=== PATIENT | female | born 1990 | race Caucasian/White ===

== ENCOUNTER → 2016-04-24 | Outpatient (CLI) | payer OTHER ==
[~2016-04-24] MED LIST: ACET50TA PO; ANUS2.5C2 TOP; DOCU10ELUD PO; IBUP80TA PO; ISOVUE-370 76% 100ML VIAL (Q9967) As Ordered ONE; LANSOIN TOP; MOM30SS PO; PRENTAB74 PO
--- NOTE | 2016-04-24 13:53 | REP ---
CT study of the right foot with IV contrast: History: Mass medial side of the right foot. Suspected to be hemangioma years ago, not definitively proven. Plain film did not show evidence of calcifications. Comparison MRI study is from February 15, 2006. Technique: Helical scanning is acquired and 2 mm high resolution axial images are generated. Coronal and sagittal multiplanar reformation images are generated and reviewed. CT findings: Bones and joints of the right foot, midfoot, and hindfoot are unremarkable. Ankle joint is normally aligned. No evidence of tarsal coalition or other malformation. The subtalar articulation is unremarkable. No bony destructive lesion or erosive change is seen. In the area where the prior MRI study showed a mass, medially in the forefoot, there is a heterogeneous soft tissue fullness containing tubular and peripherally calcified structures consistent with a vascular lesion. This mass is essentially unchanged from the 2006 prior study measuring 2.8 cm in craniocaudal span by approximately 1.4 cm medial to lateral by 2.3 cm dorsal to volar. No definite contrast enhancement is seen. No other soft tissue mass. Impression: Heterogeneous small mass in the medial aspect of the forefoot containing some peripherally calcified tubular structures consistent with vascular channels. Vascular malformation suspected such as hemangioma. It is felt to be unchanged in size when compared to prior MRI study from 2005. Signed by Iván Hernandez MD 04/24/2016 03:22 P
== END ==
LOC: M RAD 12:18
PROVIDERS: ATTEND Family Medicine
DX: R22.41 Localized swelling, mass and lump, right lower limb (principal)
CPT/HCPCS: 73701; Q9967

== ENCOUNTER 2016-05-06 11:02 | Emergency (ER) | payer OTHER ==
[~2016-05-06] VITALS: Ht 170.2 cm; Wt 88.5 kg
[~2016-05-06 11:02] MED LIST changes: -ISOVUE-370 76% 100ML VIAL (Q9967) As Ordered ONE
[2016-05-06] MEDS ORDERED: ZOLO100T PO (11:11)
[2016-05-06] MEDS ORDERED: STRA18CA PO (11:11)
[2016-05-06] MEDS ORDERED: ONDANSETRON 4 MG ORAL DISINTEGRATING TAB (S0181) PO ONE (11:45)
[2016-05-06] MEDS ORDERED: GI COCKTAIL 50ML BTL(HYOSCYAMINE/MAALOX/LIDOCAINE VISCOUS)(1:3:1) PO ONE (11:45)
[2016-05-06 12:10] VITALS: BP 129/85
[2016-05-06] MEDS ORDERED: ZOFR4TAB3 PO (12:12)
== END 2016-05-06 12:17 | disposition home or self-care (01) ==
LOC: M ED 11:26
DX: K21.0 Gastro-esophageal reflux disease with esophagitis (principal)

== ENCOUNTER 2017-01-27 14:15 | Emergency (ER) | payer OTHER ==
[~2017-01-27] VITALS: Ht 170.2 cm; Wt 90.9 kg
[~2017-01-27 14:15] MED LIST changes: +STRA18CA PO; +ZOFR4TAB3 PO; +ZOLO100T PO
[2017-01-27] MEDS ORDERED: METOCLOPRAMIDE INJ 10MG/2ML VIAL (J2765) IV ONE (15:45)
[2017-01-27 16:08] LABS: BASO % 0.4 % (0.0-1.0); EOS % 0.5 % (0.0-3.0); IMMATURE GRANULOCYTE % 0.4 % (0-0); LYMPH # 1.1 10^3/uL (1.5-6.5); LYMPH % 14.9 % (24.0-44.0); MEAN CORPUSCULAR HEMOGLOBIN 30.4 pg (27.0-33.0); MEAN CORPUSCULAR HGB CONC 33.8 g/dl (32.0-36.5); MONO # 0.4 10^3/uL (0.0-0.8); NEUTROPHILS # 5.8 10^3/uL (1.8-7.7); NEUTROPHILS % 78.8 % (36.0-66.0); PLATELET COUNT, AUTOMATED 260 10^3/uL (150-450); WHITE BLOOD COUNT 7.4 10^3/uL (4.0-10.0)
[2017-01-27] MEDS ORDERED: NS 1,000 ML IV ONE (16:30)
[2017-01-27 16:44] LABS: ALBUMIN 4.2 GM/DL (3.2-5.2); ALKALINE PHOSPHATASE 65 U/L (45-117); ALT/SGPT 24 U/L (12-78); ANION GAP 10 MEQ/L (8-16); AST/SGOT 10 U/L (7-37); BILIRUBIN,TOTAL 0.4 MG/DL (0.2-1.0); BLOOD UREA NITROGEN 13 MG/DL (7-18); CALCIUM LEVEL 9.3 MG/DL (8.5-10.1); CARBON DIOXIDE LEVEL 25 MEQ/L (21-32); CHLORIDE LEVEL 106 MEQ/L (98-107); CREATININE FOR GFR 0.74 MG/DL (0.55-1.02); GLOMERULAR FILTRATION RATE > 60.0 (>60); GLUCOSE, FASTING 87 MG/DL (70-105); HCG, SERUM QUANTITATIVE 31371 MIU/ML; POTASSIUM SERUM 3.7 MEQ/L (3.5-5.1); SODIUM LEVEL 141 MEQ/L (136-145); TOTAL PROTEIN 8.4 GM/DL (6.4-8.2)
[2017-01-27] MEDS ORDERED: DRAM50TA7 PO (17:22)
[2017-01-27 17:31] VITALS: BP 134/70
== END 2017-01-27 17:42 | disposition home or self-care (01) ==
LOC: M ED 14:15
DX: O21.9 Vomiting of pregnancy, unspecified (principal); Z3A.08 8 weeks gestation of pregnancy
CPT/HCPCS: 80053; 84702; 85025; 96374; 99284; J2765

== ENCOUNTER 2017-02-04 12:14 | Emergency (ER) | payer OTHER ==
[~2017-02-04] VITALS: Ht 170.2 cm; Wt 93.6 kg
[2017-02-04 12:14] VITALS: BP 135/80
[~2017-02-04 12:14] MED LIST changes: +DRAM50TA7 PO
[2017-02-04] MEDS ORDERED: [UNRECOGNIZED DRUG - CODE] (12:20)
[2017-02-04] MEDS ORDERED: NS 1,000 ML IV ONE (13:00)
[2017-02-04] MEDS ORDERED: METOCLOPRAMIDE INJ 10MG/2ML VIAL (J2765) IV ONE (13:00)
[2017-02-04 13:28] LABS: MUCUS, URINE RFX LARGE (NEGATIVE); SPECIFIC GRAVITY UR AUTO RFX 1.034 (1.002-1.035); SQUAM EPITHELIAL CELL UR AURFX 26 /HPF (0-6)
[2017-02-04 13:44] LABS: ANION GAP 9 MEQ/L (8-16); BLOOD UREA NITROGEN 16 MG/DL (7-18); CARBON DIOXIDE LEVEL 27 MEQ/L (21-32); CHLORIDE LEVEL 103 MEQ/L (98-107); CREATININE FOR GFR 0.72 MG/DL (0.55-1.02); GLOMERULAR FILTRATION RATE > 60.0 (>60); GLUCOSE, FASTING 92 MG/DL (70-105); POTASSIUM SERUM 4.2 MEQ/L (3.5-5.1); SODIUM LEVEL 139 MEQ/L (136-145)
[2017-02-04] MEDS ORDERED: DICL10TA PO (15:18)
== END 2017-02-04 15:22 | disposition home or self-care (01) ==
LOC: M ED 12:14
DX: O21.0 Mild hyperemesis gravidarum (principal); Z3A.08 8 weeks gestation of pregnancy; Z79.899 Other long term (current) drug therapy
CPT/HCPCS: 80048; 81001; 96361; 96374; 99284; J2765

== ENCOUNTER 2017-03-13 15:38 | Inpatient (IN) | payer OTHER ==
[2017-03-13] MEDS ORDERED: ONDANSETRON 4MG/2ML VIAL (J2405) IV (16:00)
[2017-03-13] MEDS: PROMETHAZINE INJ 25 MG/ML VIAL (J2550) IV ×2 (16:38→20:52)
[2017-03-13 16:59] LABS: HEMATOCRIT 39.2 % (36.0-47.0); HEMOGLOBIN 13.4 g/dl (12.0-16.0); MEAN CORPUSCULAR HEMOGLOBIN 30.8 pg (27.0-33.0); MEAN CORPUSCULAR HGB CONC 34.2 g/dl (32.0-36.5); MEAN CORPUSCULAR VOLUME 90.1 fl (80.0-96.0); PLATELET COUNT, AUTOMATED 232 10^3/uL (150-450); RED BLOOD COUNT 4.35 10^6/uL (4.00-5.40); RED CELL DISTRIBUTION WIDTH 13.2 % (11.5-14.5); WHITE BLOOD COUNT 8.5 10^3/uL (4.0-10.0)
[2017-03-13] MEDS: ONDANSETRON 4MG/2ML VIAL (J2405) IV ×2 (17:08→21:31)
[2017-03-13] MEDS: LR 1,000 ML IV ×2 (18:10→21:18)
[2017-03-13] MEDS: ACETAMINOPHEN 325 MG TAB PO (18:10)
[2017-03-13] MEDS: LR 500 ML IV (18:11)
[2017-03-13 19:10] LABS: ALBUMIN 4.1 GM/DL (3.2-5.2); ALBUMIN/GLOBULIN RATIO 1.11 (1.00-1.93); ALKALINE PHOSPHATASE 54 U/L (45-117); ALT/SGPT 33 U/L (12-78); ANION GAP 11 MEQ/L (8-16); AST/SGOT 13 U/L (7-37); BILIRUBIN,TOTAL 0.3 MG/DL (0.2-1.0); BLOOD UREA NITROGEN 11 MG/DL (7-18); CALCIUM LEVEL 9.6 MG/DL (8.5-10.1); CARBON DIOXIDE LEVEL 24 MEQ/L (21-32); CHLORIDE LEVEL 106 MEQ/L (98-107); CREATININE FOR GFR 0.64 MG/DL (0.55-1.02); GLOMERULAR FILTRATION RATE > 60.0 (>60); GLUCOSE, FASTING 86 MG/DL (70-100); POTASSIUM SERUM 3.5 MEQ/L (3.5-5.1); SODIUM LEVEL 141 MEQ/L (136-145); TOTAL PROTEIN 7.8 GM/DL (6.4-8.2)
[2017-03-13 21:37] LABS: APPEARANCE, URINE HAZY (CLEAR); BACTERIA, URINE AUTO 1+ (NEGATIVE); BILIRUBIN, URINE AUTO NEGATIVE (NEGATIVE); BLOOD, URINE BLOOD NEGATIVE (NEGATIVE); COLOR, URINE YELLOW (YELLOW); GLUCOSE, URINE (UA) AUTO NEGATIVE (NEGATIVE); KETONE, URINE AUTO 2+ mg/dL (NEGATIVE); LEUKOCYTE ESTERASE, URINE AUTO NEGATIVE (NEGATIVE); MUCUS, URINE SMALL (NEGATIVE); NITRITE, URINE AUTO NEGATIVE (NEGATIVE); PROTEIN, URINE AUTO 1+ mg/dL (NEGATIVE); RBC, URINE AUTO 1 /HPF (0-3); SPECIFIC GRAVITY URINE AUTO 1.029 (1.002-1.035); SQUAMOUS EPITHELIAL CELL UR AU 1 /HPF (0-6); UROBILINOGEN, URINE AUTO 0.2 mg/dL (0.0-2.0); WBC, URINE AUTO 1 /HPF (0-3)
[2017-03-13 21:48] LABS: AMPHETAMINES URINE REFLEX NEGATIVE (NEGATIVE); BARBITURATES URINE REFLEX NEGATIVE (NEGATIVE); BENZODIAZEPINES URINE REFLEX NEGATIVE (NEGATIVE); CANNABINOIDS URINE REFLEX NEGATIVE (NEGATIVE); COCAINE METABOLITE URINE REFLE NEGATIVE (NEGATIVE); METHADONE URINE REFLEX NEGATIVE (NEGATIVE); OPIATES URINE REFLEX NEGATIVE (NEGATIVE); PHENCYCLIDINE URINE REFLEX NEGATIVE (NEGATIVE)
[2017-03-14] MEDS: ONDANSETRON 4MG/2ML VIAL (J2405) IV ×3 (01:25→08:43)
[2017-03-14] MEDS: LR 1,000 ML IV (05:05)
[2017-03-14] MEDS: PROMETHAZINE INJ 25 MG/ML VIAL (J2550) IV (08:43)
[2017-03-14] MEDS ORDERED: LR 1,000 ML IV (09:00)
[2017-03-14] MEDS: ONDANSETRON 4 MG TAB (S0181) PO ×2 (12:16→17:50)
[2017-03-14] MEDS: ACETAMINOPHEN 500 MG TAB PO ×2 (13:02→20:25)
[2017-03-14] MEDS: PROMETHAZINE 25 MG TAB PO ×2 (16:00→20:25)
[2017-03-15] MEDS: ONDANSETRON 4 MG TAB (S0181) PO ×2 (00:13→06:30)
[2017-03-15] MEDS: PROMETHAZINE 25 MG TAB PO (08:28)
[2017-03-15] MEDS: LR 1,000 ML IV (09:00)
== END 2017-03-15 12:00 | disposition home or self-care (01) | DRG 781 ==
LOC: M OBS 15:38
DX: O21.9 Vomiting of pregnancy, unspecified (principal); Z3A.13 13 weeks gestation of pregnancy; Z79.899 Other long term (current) drug therapy; F41.9 Anxiety disorder, unspecified; O99.342 Other mental disorders complicating pregnancy, second trimester

== ENCOUNTER 2017-08-20 20:19 | Outpatient (CLI) | payer OTHER ==
[2017-08-20 21:22] LABS: HEMATOCRIT 32.7 % (36.0-47.0); HEMOGLOBIN 10.7 g/dl (12.0-15.5); MEAN CORPUSCULAR HEMOGLOBIN 29.9 pg (27.0-33.0); MEAN CORPUSCULAR HGB CONC 32.7 g/dl (32.0-36.5); MEAN CORPUSCULAR VOLUME 91.3 fl (80.0-96.0); PLATELET COUNT, AUTOMATED 149 10^3/uL (150-450); RED BLOOD COUNT 3.58 10^6/uL (4.00-5.40); RED CELL DISTRIBUTION WIDTH 15.2 % (11.5-14.5); WHITE BLOOD COUNT 7.3 10^3/uL (4.0-10.0)
== END 2017-08-20 22:35 | disposition home or self-care (01) ==
LOC: M LDO 20:19
DX: O99.89 Other specified diseases and conditions complicating pregnancy, childbirth and the puerperium (principal); Z3A.37 37 weeks gestation of pregnancy; W19.XXXA Unspecified fall, initial encounter; E86.0 Dehydration; O99.013 Anemia complicating pregnancy, third trimester; O99.343 Other mental disorders complicating pregnancy, third trimester
CPT/HCPCS: 59025

== ENCOUNTER 2017-08-29 02:14 | Inpatient (IN) | payer OTHER ==
[2017-08-29] MEDS: CALCIUM CARBONATE 500 MG CHEW U/D PO (08:12)
[2017-08-29 08:25] LABS: HEMATOCRIT 32.9 % (36.0-47.0); MEAN CORPUSCULAR HEMOGLOBIN 30.3 pg (27.0-33.0); MEAN CORPUSCULAR HGB CONC 33.4 g/dl (32.0-36.5); MEAN CORPUSCULAR VOLUME 90.6 fl (80.0-96.0); PLATELET COUNT, AUTOMATED 174 10^3/uL (150-450); RED BLOOD COUNT 3.63 10^6/uL (4.00-5.40); WHITE BLOOD COUNT 9.6 10^3/uL (4.0-10.0)
[2017-08-29] MEDS: LR 1,000 ML IV (09:36)
[2017-08-29] MEDS: OXYTOCIN DRIP 30 UNITS in APPROPRIATE DILUENT 1 EA IV ×2 (09:37→17:57)
[2017-08-29] MEDS ORDERED: FENTANYL 2MCG/ML ROPIVACAINE 0.2% IN 0.9% NACL 200ML IVBAG As Ordered (11:51)
[2017-08-29] MEDS ORDERED: LACTATED RINGER'S 1000 ML IV (13:45)
[2017-08-29] MEDS ORDERED: FENTANYL/ROPIVACAINE/NACL BAG 200 ML EPIDURAL (13:45)
[2017-08-29] MEDS ORDERED: ONDANSETRON 4MG/2ML VIAL (J2405) IV ×2 (13:45→18:00)
[2017-08-29] MEDS ORDERED: ePHEDrine SULFATE 25 MG/5 ML(5MG/ML) SYRINGE IV (13:45)
[2017-08-29] MEDS ORDERED: diphenhydrAMINE INJ 50MG/ML VIAL (J1200) IV (13:45)
[2017-08-29] MEDS ORDERED: EPIDURAL COMMENT XX (13:45)
[2017-08-29] MEDS ORDERED: REFRIGERATOR IV KEYS XX (13:45)
[2017-08-29] MEDS ORDERED: NALOXONE INJ 0.4 MG/1 ML VIAL (J2310) IV (13:45)
[2017-08-29] MEDS ORDERED: EPIDURAL/PCA KEYS XX (13:45)
[2017-08-29] MEDS ORDERED: PROMETHAZINE 25 MG TAB PO (18:00)
[2017-08-29] MEDS ORDERED: DIBUCAINE 1% OINTMENT 30GM TOP (18:00)
[2017-08-29] MEDS ORDERED: RHOGAM 300 MCG (1500 IU) INJ (J2790) IM (18:00)
[2017-08-29] MEDS ORDERED: MEASLES,MUMPS,RUBELLA VACCINE INJ (MMR-II) (90707) SC (18:00)
[2017-08-29] MEDS ORDERED: METHYLERGONOVINE MALEATE 0.2 MG/ML VIAL (J2210) IM (18:00)
[2017-08-29] MEDS: IBUPROFEN 800 MG TAB PO (18:39)
[2017-08-29] MEDS: DOCUSATE SODIUM 100 MG CAP PO (22:11)
[2017-08-30] MEDS: ACETAMINOPHEN 500 MG TAB PO (02:00)
[2017-08-30] MEDS: DOCUSATE SODIUM 100 MG CAP PO ×2 (08:37→20:25)
[2017-08-30] MEDS: PRENATAL VITAMINS CHEWABLE TABLET PO (08:37)
[2017-08-30] MEDS: IBUPROFEN 800 MG TAB PO ×2 (08:37→20:30)
[2017-08-31] MEDS: PRENATAL VITAMINS CHEWABLE TABLET PO (08:03)
[2017-08-31] MEDS: DOCUSATE SODIUM 100 MG CAP PO (08:03)
[2017-08-31] MEDS: IBUPROFEN 800 MG TAB PO (08:03)
== END 2017-08-31 15:40 | disposition home or self-care (01) | DRG 775 ==
LOC: M LDO 02:14 → M LDI 04:54 → M OBS 18:10
PROVIDERS: Obstetrics & Gynecology
PROC: 10E0XZZ Delivery of Products of Conception, External Approach (ICD-10-PCS; principal; 2017-08-29)
DX: O36.0130 Maternal care for anti-D [Rh] antibodies, third trimester, not applicable or unspecified (principal); Z37.0 Single live birth; Z3A.38 38 weeks gestation of pregnancy

== ENCOUNTER 2018-04-13 19:59 | Emergency (ER) | payer OTHER ==
[~2018-04-13] VITALS: Ht 170.2 cm; Wt 90.9 kg
[~2018-04-13 19:59] MED LIST changes: +ACET500T15 PO; +B6 N1TAB PO; +COLA100C5 PO; +DICL10TA PO; +FERR325T3 PO; +IBUP-1022 PO; +PHEN1SUP6 PO; +PRENTAB9 PO; +TYLE325T5 PO; +UNIS25TA3 PO; +VITA500C24 PO; +ZOFR4TAB14 PO; +ZOFR4TAB16 PO; -ZOFR4TAB3 PO; +[UNRECOGNIZED DRUG - CODE]
[2018-04-13] MEDS ORDERED: ADDE15CA3 PO (20:02)
[2018-04-13] MEDS: ONDANSETRON 4 MG ORAL DISINTEGRATING TAB (Q0162 PER 1MG) PO ONE (20:24)
[2018-04-13] MEDS: DICYCLOMINE 10 MG CAP PO ONE (20:24)
[2018-04-13 20:58] VITALS: BP 118/70
[2018-04-13] MEDS ORDERED: ONDA4TAB6 PO (20:59)
[2018-04-13] MEDS ORDERED: DICY10CA13 PO (20:59)
== END 2018-04-13 21:17 | disposition home or self-care (01) ==
LOC: M ED 19:59
DX: R10.2 Pelvic and perineal pain (principal); R11.2 Nausea with vomiting, unspecified; F90.9 Attention-deficit hyperactivity disorder, unspecified type; Z79.899 Other long term (current) drug therapy
CPT/HCPCS: 81001; 81025; 99284; Q0162

== ENCOUNTER → 2019-05-28 | Outpatient (REF) | payer BC ==
[~2019-05-28] MED LIST changes: -ACET50TA PO; +ADDE15CA3 PO; -B6 N1TAB PO; +DICY10CA13 PO; -DOCU10ELUD PO; +DOCU5LIQ PO; +MAPA500T17 PO; +ONDA4TAB6 PO; +VITA100T14 PO
[2019-05-28 13:35] LABS: HEMATOCRIT 40.4 % (36.0-47.0); HEMOGLOBIN 13.3 g/dl (12.0-15.5); MEAN CORPUSCULAR HEMOGLOBIN 31.3 pg (27.0-33.0); MEAN CORPUSCULAR HGB CONC 32.9 g/dl (32.0-36.5); MEAN CORPUSCULAR VOLUME 95.1 fl (80.0-96.0); PLATELET COUNT, AUTOMATED 292 10^3/uL (150-450); RED BLOOD COUNT 4.25 10^6/uL (4.00-5.40); WHITE BLOOD COUNT 4.2 10^3/uL (4.0-10.0)
[2019-05-28 13:51] LABS: ALBUMIN 3.9 GM/DL (3.2-5.2); ALT/SGPT 61 U/L (12-78); BILIRUBIN,TOTAL 0.2 MG/DL (0.2-1.0); BLOOD UREA NITROGEN 15 MG/DL (7-18); CALCIUM LEVEL 9.4 MG/DL (8.5-10.1); CARBON DIOXIDE LEVEL 30 MEQ/L (21-32); CHLORIDE LEVEL 106 MEQ/L (98-107); CREATININE FOR GFR 0.82 MG/DL (0.55-1.30); GLOMERULAR FILTRATION RATE > 60.0 (>60); GLUCOSE, FASTING 82 MG/DL (70-100); POTASSIUM SERUM 4.3 MEQ/L (3.5-5.1); SODIUM LEVEL 141 MEQ/L (136-145); TOTAL PROTEIN 7.4 GM/DL (6.4-8.2)
== END ==
LOC: M LAB REF 13:24
PROVIDERS: ATTEND Internal Medicine
DX: Z79.899 Other long term (current) drug therapy (principal); F41.9 Anxiety disorder, unspecified

== ENCOUNTER → 2019-08-18 | Outpatient (CLI) | payer BC | LOC: M LAB 14:50 | PROVIDERS: ATTEND Internal Medicine Gastroenterology | DX: R19.7 Diarrhea, unspecified (principal) ==

== ENCOUNTER → 2019-08-27 | Outpatient (CLI) | payer BC ==
[~2019-08-27] MED LIST changes: +BUPR150T5; +DROS1TAB2; +E-Z-PAQUE 96% w/w SUSP 176GM BTL As Ordered ONE; +METH36TA5
--- NOTE | 2019-08-30 23:44 | REP ---
Examination Requested: SBFT Reason For Exam: Diarrhea Small Bowel Follow Through The procedure was performed by WILLAM Iglesias, under the direct supervision of Dr. Reno. The images were reviewed with Dr. Reno. The ranch supervisor film shows no organomegaly or pathological masses. The intestinal gas pattern appears normal. The barium was administered and the barium column was followed through the small bowel to the level of the terminal ileum. Small bowel transit time was approximately 40 minutes. During fluoroscopy gentle palpation shows all loops are freely mobile and pliable. There are no fixed or angulated loops. The small bowel mucosal pattern is normal in course and caliber. There is no transition to suggest a partial small-bowel obstruction. Spot filming of the terminal ileum shows it to be unremarkable. Impression: 1. Unremarkable small bowel follow-through 0.7 minutes of fluoroscopy time was utilized for this procedure. Some fluoroscopic images are performed with last image hold technology. These images require no additional radiation. Reviewed by WILLAM Hogue 08/27/2019 01:21 P Electronically Signed by Jamil Reno MD 08/30/2019 11:36 P
== END ==
LOC: M RAD 09:08
PROVIDERS: ATTEND Internal Medicine Gastroenterology
DX: R19.7 Diarrhea, unspecified (principal)

== ENCOUNTER → 2019-09-29 | Outpatient (CLI) | payer BC ==
[~2019-09-29] MED LIST changes: -E-Z-PAQUE 96% w/w SUSP 176GM BTL As Ordered ONE
--- NOTE | 2019-11-11 07:34 | REP ---
HIDA SCAN WITH GALLBLADDER EJECTION FRACTION: FINDINGS: Following the intravenous administration of 6.6 mCi technetium-99m Brovana, multiple images of the right upper quadrant are performed every 5 minutes for a period of one hour. The gallbladder is visualized at 10 minutes post injection. By one hour, there is no evidence of biliary to bowel transit, which may indicate a hypertonic sphincter of Oddi. At the one hour priscila, 8 ounces of Ensure Enlive is ingested and further imaging performed for one hour. There is relatively prompt biliary to bowel transit following ingestion of the Ensure. Gallbladder activity is measured. The gallbladder ejection fraction is calculated to be 30%, which is below normal value of 35% or greater. 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 Mildly decreased gallbladder ejection fraction at 30%. MTDD
== END ==
LOC: M RAD 08:00
PROVIDERS: ATTEND Internal Medicine Gastroenterology
DX: K82.8 Other specified diseases of gallbladder (principal); R11.0 Nausea

== ENCOUNTER → 2019-11-12 | Outpatient (REF) | payer BC ==
[2019-11-12 13:28] LABS: BASO # 0.1 10^3/uL (0.0-0.2); BASO % 1.1 % (0.0-1.0); EOS # 0.1 10^3/uL (0.0-0.5); EOS % 1.3 % (0.0-3.0); HEMATOCRIT 41.3 % (36.0-47.0); HEMOGLOBIN 13.7 g/dl (12.0-15.5); LYMPH # 1.5 10^3/uL (1.5-5.0); LYMPH % 32.9 % (24.0-44.0); MEAN CORPUSCULAR HEMOGLOBIN 32.2 pg (27.0-33.0); MEAN CORPUSCULAR HGB CONC 33.2 g/dl (32.0-36.5); MEAN CORPUSCULAR VOLUME 96.9 fl (80.0-96.0); MONO # 0.2 10^3/uL (0.0-0.8); MONO % 4.8 % (0.0-5.0); NEUTROPHILS # 2.7 10^3/uL (1.5-8.5); NEUTROPHILS % 59.7 % (36.0-66.0); PLATELET COUNT, AUTOMATED 271 10^3/uL (150-450); RED BLOOD COUNT 4.26 10^6/uL (4.00-5.40); WHITE BLOOD COUNT 4.6 10^3/uL (4.0-10.0)
[2019-11-12 14:05] LABS: ALT/SGPT 29 U/L (12-78); BILIRUBIN,TOTAL 0.2 MG/DL (0.2-1.0); BLOOD UREA NITROGEN 16 MG/DL (7-18); CALCIUM LEVEL 9.3 MG/DL (8.5-10.1); CARBON DIOXIDE LEVEL 28 MEQ/L (21-32); CHLORIDE LEVEL 107 MEQ/L (98-107); CHOLESTEROL LEVEL 176 MG/DL (<200); CHOLESTEROL RISK RATIO 2.983 (<5); FERRITIN 25 NG/ML (8-252); GLOMERULAR FILTRATION RATE > 60.0 (>60); GLUCOSE, FASTING 89 MG/DL (70-100); HDL CHOLESTEROL 59 MG/DL (>40); HEMOGLOBIN A1c 5.1 %; IRON (FE) 70 UG/DL (50-170); LDL CHOLESTEROL 98 MG/DL (<100); NON-HDL-C 117 MG/DL; PERCENT SATURATION 16.7 % (13.2-45.0); POTASSIUM SERUM 4.1 MEQ/L (3.5-5.1); RHEUMATOID FACTOR QUANT < 10.0 IU/ML (<15.0); SODIUM LEVEL 138 MEQ/L (136-145); TOTAL IRON BINDING CAPACITY 420 UG/DL (250-450); TOTAL PROTEIN 7.2 GM/DL (6.4-8.2); TRIGLYCERIDES LEVEL 96 MG/DL (<150)
[2019-11-12 14:08] LABS: TOTAL 25(OH) VITAMIN D 31.3 NG/ML (30.0-100.0)
[2019-11-12 14:09] LABS: TOTAL T3 128.5 NG/DL (60.0-181.0)
[2019-11-16 10:30] LABS: THYROID PEROXIDASE ANTIBODY < 28.0 U/ML (<60.0)
== END ==
LOC: M LAB REF 13:06
PROVIDERS: ATTEND Physician Assistant Medical
DX: R53.83 Other fatigue (principal); F41.9 Anxiety disorder, unspecified; K58.9 Irritable bowel syndrome, unspecified

== ENCOUNTER → 2019-11-15 | Outpatient (CLI) | payer BC | LOC: M LABSMTC 09:42 | PROVIDERS: ATTEND Anesthesiology | DX: Z01.812 Encounter for preprocedural laboratory examination (principal); Z20.828 Contact with and (suspected) exposure to other viral communicable diseases | CPT/HCPCS: C9803; U0003 ==

== ENCOUNTER 2019-11-20 11:12 | Day surgery (SDC) | payer BC ==
[~2019-11-20] VITALS: Ht 170.2 cm; Wt 75.7 kg
[~2019-11-20 11:12] MED LIST changes: +NS 1,000 ML IV ONE
[2019-11-20] MEDS ORDERED: propofoL 200 MG/20 ML VIAL As Ordered ONE ×3 (11:51→13:18)
[2019-11-20] MEDS ORDERED: LIDOCAINE 2% 100MG/5ML SDV (FOR ANES.) As Ordered ONE ×2 (11:51→12:59)
--- NOTE | 2019-11-20 13:11 | ROOR ---
Patient Name: Mima Cifuentes Procedure Date: 11/20/2019 12:55 PM Date of : 1990 Age: 29 Room: [facility] Gender: Female Note Status: Finalized Procedure: Upper GI endoscopy Indications: Generalized abdominal pain, Nausea Providers: Scottie ALEJANDRO MD Referring MD: Ana DAMON MD Requesting Provider: Medicines: Monitored Anesthesia Care Complications: No immediate complications. Procedure: Pre-Anesthesia Assessment: - The heart rate, respiratory rate, oxygen saturations, blood pressure, adequacy of pulmonary ventilation, and response to care were monitored throughout the procedure. The Endoscope was introduced through the mouth, and advanced to the second part of duodenum. The upper GI endoscopy was accomplished without difficulty. The patient tolerated the procedure well. Findings: The esophagus was normal. The stomach was normal. The examined duodenum was normal. Biopsies for histology were taken with a cold forceps in the second portion of the duodenum and in the third portion of the duodenum for evaluation of celiac disease. Biopsies were taken with a cold forceps in the gastric antrum for Helicobacter pylori testing. Impression: - Normal esophagus. - Normal stomach. - Normal examined duodenum. - Biopsies were taken with a cold forceps for evaluation of celiac disease. - Biopsies were taken with a cold forceps for Helicobacter pylori testing. Recommendation: - Telephone endoscopist for pathology results in 2 weeks. - Please complete your lab work ordered--stool testing. (my office will mail you lab slip again if you do not have it) Scottie Alejandro MD Scottie ALEJANDRO MD 11/20/2019 1:10:42 PM Electronically signed by Scottie ALEJANDRO MD Number of Addenda: 0 Note Initiated On: 11/20/2019 12:55 PM Estimated Blood Loss: Estimated blood loss: none.
--- NOTE | 2019-11-20 13:29 | ROOR ---
Patient Name: Mima Cifuentes Procedure Date: 11/20/2019 12:56 PM Date of : 1990 Age: 29 Room: [facility] Gender: Female Note Status: Finalized Procedure: Colonoscopy Indications: Suspected irritable bowel syndrome, Change in bowel habits Providers: Scottie ALEJANDRO MD Referring MD: Ana DAMON MD Requesting Provider: Medicines: Monitored Anesthesia Care Complications: No immediate complications. Procedure: Pre-Anesthesia Assessment: - The heart rate, respiratory rate, oxygen saturations, blood pressure, adequacy of pulmonary ventilation, and response to care were monitored throughout the procedure. The Colonoscope was introduced through the anus and advanced to 10 cm into the ileum. The colonoscopy was performed without difficulty. The patient tolerated the procedure well. The quality of the bowel preparation was good. Findings: The perianal and digital rectal examinations were normal. The colon (entire examined portion) appeared normal. The terminal ileum appeared normal. Biopsies for histology were taken with a cold forceps from the entire colon for evaluation of microscopic colitis. Impression: - Very small internal Hemorrhoids. - The entire colon is normal. - The examined portion of the ileum was normal. - Biopsies were taken with a cold forceps from the entire colon for evaluation of microscopic colitis. Recommendation: - Telephone endoscopist for pathology results in 2 weeks. - Telephone endoscopist for lab results in 2 weeks. - Please complete stool testing - my office will mail you the lab slips again if you do not have them. Scottie Alejandro MD Scottie ALEJANDRO MD 11/20/2019 1:28:48 PM Electronically signed by Scottie ALEJANDRO MD Number of Addenda: 0 Note Initiated On: 11/20/2019 12:56 PM Estimated Blood Loss: Estimated blood loss: none.
[2019-11-20 13:45] VITALS: BP 114/53
== END 2019-11-20 14:13 | disposition home or self-care (01) ==
LOC: M OPP 11:12
PROVIDERS: ATTEND Internal Medicine Gastroenterology
DX: R19.4 Change in bowel habit (principal); R10.84 Generalized abdominal pain; R11.0 Nausea; D12.6 Benign neoplasm of colon, unspecified; K64.8 Other hemorrhoids; D13.2 Benign neoplasm of duodenum; F41.9 Anxiety disorder, unspecified; F32.9 Major depressive disorder, single episode, unspecified; F90.9 Attention-deficit hyperactivity disorder, unspecified type; Z79.899 Other long term (current) drug therapy; Z82.49 Family history of ischemic heart disease and other diseases of the circulatory system; Z83.3 Family history of diabetes mellitus; Z82.69 Family history of other diseases of the musculoskeletal system and connective tissue; Z80.1 Family history of malignant neoplasm of trachea, bronchus and lung

== ENCOUNTER → 2019-12-25 | Outpatient (REF) | payer BC ==
[~2019-12-25] MED LIST changes: -NS 1,000 ML IV ONE
[2019-12-25 14:31] LABS: AMYLASE 70 U/L (25-115); LIPASE 221 U/L (73-393)
== END ==
LOC: M LAB REF 13:07
PROVIDERS: ATTEND Nurse Practitioner Family
DX: R10.10 Upper abdominal pain, unspecified (principal)

== ENCOUNTER → 2020-01-06 | Outpatient (REF) | payer BC | LOC: M LAB REF 14:40 | PROVIDERS: ATTEND Internal Medicine Gastroenterology | DX: R19.7 Diarrhea, unspecified (principal) ==

== ENCOUNTER → 2020-03-25 | Outpatient (REF) | payer BC ==
[2020-03-25 13:18] LABS: BASO # 0.1 10^3/uL (0.0-0.2); BASO % 0.9 % (0.0-1.0); EOS # 0.1 10^3/uL (0.0-0.5); EOS % 1.1 % (0.0-3.0); HEMOGLOBIN 14.2 g/dl (12.0-15.5); LYMPH # 1.5 10^3/uL (1.5-5.0); LYMPH % 26.7 % (24.0-44.0); MEAN CORPUSCULAR HEMOGLOBIN 31.3 pg (27.0-33.0); MEAN CORPUSCULAR HGB CONC 32.3 g/dl (32.0-36.5); MEAN CORPUSCULAR VOLUME 97.1 fl (80.0-96.0); MONO # 0.4 10^3/uL (0.0-0.8); MONO % 6.5 % (0.0-5.0); NEUTROPHILS # 3.6 10^3/uL (1.5-8.5); NEUTROPHILS % 64.4 % (36.0-66.0); PLATELET COUNT, AUTOMATED 278 10^3/uL (150-450); RED BLOOD COUNT 4.53 10^6/uL (4.00-5.40); WHITE BLOOD COUNT 5.6 10^3/uL (4.0-10.0)
[2020-03-25 13:25] LABS: APPEARANCE, URINE CLOUDY (CLEAR); BACTERIA, URINE AUTO NEGATIVE (NEGATIVE); BILIRUBIN, URINE AUTO NEGATIVE (NEGATIVE); BLOOD, URINE BLOOD 1+ (NEGATIVE); CALCIUM OXALATE CRYSTALS SMALL; COLOR, URINE YELLOW (YELLOW); GLUCOSE, URINE (UA) AUTO NEGATIVE (NEGATIVE); KETONE, URINE AUTO NEGATIVE (NEGATIVE); LEUKOCYTE ESTERASE, URINE AUTO 3+ (NEGATIVE); MUCUS, URINE SMALL (NEGATIVE); NITRITE, URINE AUTO NEGATIVE (NEGATIVE); PROTEIN, URINE AUTO 1+ mg/dL (NEGATIVE); RBC, URINE AUTO 2 /HPF (0-3); SPECIFIC GRAVITY URINE AUTO 1.024 (1.002-1.035); SQUAMOUS EPITHELIAL CELL UR AU 13 /HPF (0-6); UROBILINOGEN, URINE AUTO 0.2 mg/dL (0.0-2.0); WBC, URINE AUTO 13 /HPF (0-3)
[2020-03-25 13:30] LABS: INR 0.99; PROTHROMBIN TIME 13.3 SECONDS (12.5-14.3)
[2020-03-25 13:52] LABS: ALBUMIN 4.1 GM/DL (3.2-5.2); ALT/SGPT 26 U/L (12-78); BILIRUBIN,TOTAL 0.2 MG/DL (0.2-1.0); BLOOD UREA NITROGEN 15 MG/DL (7-18); CALCIUM LEVEL 9.8 MG/DL (8.5-10.1); CARBON DIOXIDE LEVEL 30 MEQ/L (21-32); CHLORIDE LEVEL 105 MEQ/L (98-107); CREATININE FOR GFR 1.13 MG/DL (0.55-1.30); GLOMERULAR FILTRATION RATE > 60.0 (>60); GLUCOSE, FASTING 102 MG/DL (70-100); LIPASE 251 U/L (73-393); POTASSIUM SERUM 4.2 MEQ/L (3.5-5.1); SODIUM LEVEL 141 MEQ/L (136-145); TOTAL PROTEIN 7.2 GM/DL (6.4-8.2)
[2020-03-25 13:59] LABS: TOTAL 25(OH) VITAMIN D 22.1 NG/ML (30.0-100.0)
== END ==
LOC: M LAB REF 12:53
PROVIDERS: ATTEND Physician Assistant Medical
DX: K80.70 Calculus of gallbladder and bile duct without cholecystitis without obstruction (principal)

== ENCOUNTER 2020-03-31 08:47 | Day surgery (SDC) | payer BC, OTHER ==
[~2020-03-31] VITALS: Ht 170.2 cm; Wt 75.9 kg
[~2020-03-31 08:47] MED LIST changes: +AMPICILLIN SOD/SULBACTAM SOD 3 GM in D5W MINI-BAG PLUS 100 ML IV ONE; +CelecoXIB (CeleBREX) 100 MG CAP PO ONE; +LIDOCAINE 1% MDV 20ML VIAL SQ PRN; +LR 1,000 ML IV ONE
--- OUTSIDE RECORDS SUMMARY | 2020-03-31 08:54 | CCD | Continuity of Care Document ---
Author Author Mima LOPES Organization Unknown Address [address] [place] [address] Phone [phone] Care Team Providers Care Cleaning Staff Supervisor Name Role Phone Ana Panchal MD AUTM [phone] [facility] [address] [facility] AUTM [phone] [facility] Gastroenterology AUTM [phone] Problems Active Problems Provider Date Anxiety state Ana Panchal MD Onset: 01/21/2019 Irritable bowel syndrome characterized by alternating bowel habit Ana Panchal MD Onset: 01/21/2019 Attention-deficit hyperactivity disorder, unspecified type Ana Panchal MD Onset: 01/21/2019 Recurrent major depression in partial remission Rodolfo Piper rn, KUHSHI Onset: 03/16/2020 Family problems Rodolfo White LCSW Onset: 03/16/2020 Social History Type Date Description Comments Sex Unknown Tobacco Use Start: Unknown Never Smoked Cigarettes Tobacco Use Start: Unknown Never Smoked Cigars Tobacco Use Start: Unknown Never Smoked A Pipe Tobacco Use Start: Unknown Never Used Smokeless Tobacco ETOH Use Denies alcohol use Tobacco Use Start: Unknown Patient has never smoked Recreational Drug Use Denies Drug Use Exercise Type/Frequency Does not exercise Guns in Home No Smoke Alarms Carbon Monoxide Detector: Yes Smoke Alarms Yes Allergies, Adverse Reactions, Alerts Active Allergies Reaction Severity Comments Date NKDA 01/21/2019 NKEA 01/21/2019 NKFA 01/21/2019 Medications Active Medications SIG Qnty Indications Ordering Provide r Date Kariva 0.15-0.02/0.01 mg (08/07) Ta blets 1 by mouth every day 28tabs Z30.011 Aiden Samuels M.D. 03/16 Adderall XR 25mg Caps ER 24HR 1 by mouth every day 30caps Iván Stauffer MD 11/04/2019 Bupropion Hydrochloride ER (SR) 150mg Tablets ER 12HR take one tablet by mouth twice daily 60tabs F32.89 Iván Stauffer MD 01/21/2019 Hyoscyamine Sulfate 0.125mg Tablet s 1 tablet three times daily as needed for abdominal pain 30tabs K58.2 Ana Panchal MD 01/21/2019 Vitamin D 1000Unit Tablets 1 by mouth every day Unknown Drospirenone-Ethinyl Estradiol 3-0.02mg Tablets Take 1 Tablet By Mouth Once Daily Unknown History Medications Concerta 36mg Tablets ER 1 by mouth every day 30tabs Iván Stauffer MD 10/07/2019 - 11/04/2019 Immunizations Description No Information Available Vital Signs Date Vital Result Comment 03/16/2020 9:37am BP Systolic 118 mmHg BP Diastolic 72 mmHg Heart Rate 70 /min Body Temperature 96.8 F Weight 166.12 lb Weight 75.354 kg Height 67 inches 5'7" BMI (Body Mass Index) 26.0 kg/m2 BSA (Body Surface Area) 1.87 m2 02/04/2020 9:53am BP Systolic 102 mmHg BP Diastolic 68 mmHg Heart Rate 107 /min Body Temperature 98.4 F Respiratory Rate 16 /min O2 % BldC Oximetry 98 % Weight 165.00 lb Weight 74.844 kg Height 67 inches 5'7" BMI (Body Mass Index) 25.8 kg/m2 BSA (Body Surface Area) 1.86 m2 Results Description No Information Available Procedures Date Code Description Status 03/16/2020 18282 Psychiatric Diagnostic Evaluatio n Completed 02/04/2020 31448 Admin Patient Focused Health Ris k Assessment Instrument Completed 02/04/2020 91556 Brief Emotional/Beha v Assessment W/ Scoring Doc Per Standard Inst Completed 10/07/2019 64777 Psychiatric Diag Eval W/Medical Service Completed Medical Devices Description No Information Available Encounters Description No Information Available Assessments Date Code Description Provider 03/25/2020 F90.9 Attention-deficit hyperactivity disorder, unspecified type Darlyn Philip RONNIE 03/25/2020 F33.41 Major depressive disorder, recur rent, in partial remission Darlyn Philip, [facility] 03/25/2020 Z63.0 Problems in relationship with sp ouse or partner Darlyn Tamera, [facility] 03/25/2020 F41.9 Anxiety disorder, unspecified Th audra Philip, [facility] 03/16/2020 F90.9 Attention-deficit hyperactivity disorder, unspecified type Rodolfo White, [facility] 03/16/2020 Z01.419 Encounter for gyneco logical examination (general) (routine) without abnormal findings Arlen Palomino, [facility] 03/16/2020 F33.41 Major depressive disorder, recur rent, in partial remission Rodolfo White, [facility] 03/16/2020 Z30.011 Encounter for initial prescripti on of contraceptive pills Arlen Palomino, [facility] 03/16/2020 Z63.0 Problems in relationship with sp ouse or partner Rodolfo White, [facility] 02/08/2020 F90.9 Attention-deficit hyperactivity disorder, unspecified type Ramesh Winslow PA-C 02/08/2020 F33.9 Major depressive disorder, recur rent, unspecified JANICE ThomasC 02/08/2020 F41.9 Anxiety disorder, unspecified Ca oleg Winslow PA-C 02/04/2020 Z00.00 Encounter for genera l adult medical examination without abnormal findings Ana Panchal MD 02/04/2020 R10.9 Unspecified abdominal pain Ana Panchal MD 02/04/2020 F90.9 Attention-deficit hyperactivity disorder, unspecified type Ana Panchal MD 02/04/2020 F33.9 Major depressive disorder, recur rent, unspecified Ana Panchal MD 02/04/2020 F41.9 Anxiety disorder, unspecified An fabián Panchal MD 12/01/2019 F90.9 Attention-deficit hyperactivity disorder, unspecified type Ramesh Winslow PA-C 12/01/2019 F33.9 Major depressive disorder, recur rent, unspecified Ramesh Winslow PA-C 11/23/2019 F90.9 Attention-deficit hyperactivity disorder, unspecified type Darlyn Philip, [facility] 11/23/2019 F33.9 Major depressive disorder, recur rent, unspecified Darlyn Philip, [facility] 11/04/2019 F90.9 Attention-deficit hyperactivity disorder, unspecified type Ramesh Winslow, ELEAZAR-C 11/04/2019 F33.9 Major depressive disorder, recur rent, unspecified Ramesh Nayla, PA-C 10/07/2019 F33.9 Major depressive disorder, recur rent, unspecified Ramesh Winslow, PA-C 10/07/2019 F90.9 Attention-deficit hyperactivity disorder, unspecified type Ramesh Nayla, PA-C 10/05/2019 F33.9 Major depressive disorder, recur rent, unspecified Darlyn Philip, [facility] 10/05/2019 F90.9 Attention-deficit hyperactivity disorder, unspecified type MILE Gong Plan of Treatment Future Appointment(s):* 04/18/2020 4:00 pm - MILE Gong at Behavioral [facility] * 04/07/2020 1:00 pm - MILE Gong at Behavioral Health * 05/10/2020 10:20 am - Ramesh Winslow PA-C at [facility] * 08/04/2020 9:20 am - Ana Panchal MD at [facility] Functional Status Functional Condition Comment Date Status Glasses Active Mental Status Description No Information Available Referrals Description No Information Available
--- OUTSIDE RECORDS SUMMARY | 2020-03-31 08:55 | CCD | Continuity of Care Document ---
Author Author Mima WINSLOW PA-C Organization Unknown Address [facility] Behavioral Health [address] [place] [address] Phone [phone] Care Team Providers Care Plugman Name Role Phone Ana Panchal MD AUTM [phone] [facility] AUTM [phone] [facility] Gastroenterology AUTM [phone] Problems Active Problems Provider Date Depressive disorder Ana Panchal MD Onset: 01/21/2019 Anxiety state Ana Panchal MD Onset: 01/21/2019 Irritable bowel syndrome characterized by alternating bowel habit Ana Panchal MD Onset: 01/21/2019 Attention-deficit hyperactivity disorder, unspecified type Ana Panchal MD Onset: 01/21/2019 Social History Type Date Description Comments Sex [...] SIG Qnty Indications Ordering Provide r Date Adderall XR 25mg Caps ER 24HR 1 [...] Available Vital Signs Date Vital Result Comment 02/04/2020 9:53am BP Systolic 102 mmHg BP Diastolic 68 mmHg Heart Rate 107 /min Body Temperature 98.4 F Respiratory Rate 16 /min O2 % BldC Oximetry 98 % Weight 165.00 lb Weight 74.844 kg Height 67 inches 5'7" BMI (Body Mass Index) 25.8 kg/m2 BSA (Body Surface Area) 1.86 m2 09/09/2019 8:08am BP Systolic Sitting 119 mmHg BP Diastolic Sitting 74 mmHg Heart Rate 97 /min Body Temperature 98.2 F Oral Respiratory Rate 16 /min O2 % BldC Oximetry 100 % Weight 171.25 lb Weight 77.679 kg Height 67 inches 5'7" BMI (Body Mass Index) 26.8 kg/m2 BSA (Body Surface Area) 1.89 m2 Results Test Acquired Date Facility Test Result H/L Range Note [facility] Toxassure Select 13 09/09/2019 Tonya chaudhry Summary Report (Summary) FINAL 1, 2 PDF . 1 {DIAGNOSIS: F33.9~{MEDICATI ONS/DECLARED: ADDERALL, BUPROPION~{PRESCRIPTION INFO:~{PRESCRIPTION 2 TOXASSURE SELECT 13 (MW) Test Result Flag Units Drug Present Amphetamine 349 ng/mg creat Amphetamine is available as a schedule II prescription drug. Test Result Flag Units Ref Range Creatinine 138 mg/dL >=20 Declared Medications: Medication list was not provided. For clinical consultation, please call . Procedures Date Code Description Status 02/04/2020 96804 Admin Patient Focused Health Ris k Assessment Instrument Completed 02/04/2020 77331 Brief Emotional/Beha v Assessment W/ Scoring Doc Per Standard Inst Completed 10/07/2019 38394 Psychiatric Diag Eval W/Medical Service Completed 08/12/2019 29553 Psychiatric Diagnostic Evaluatio n Completed Medical Devices Description No Information Available Encounters Type Date Location Provider Dx Diagnosis Office Visit 02/08/2020 10:20a Behavioral Health Ramesh Winslow PA-C F90.9 Attention-deficit hyperactivity disorder, unspecified type F33.9 Major depressive disorder, r ecurrent, unspecified F41.9 Anxiety disorder, unspecifie d Office Visit 02/04/2020 9:40a [facility] Ana Panchal MD Z00.00 Encntr for general adult medical exam w/o abnormal findings R10.9 Unspecified abdominal pain F90.9 Attention-deficit hyperactiv ity disorder, unspecified type F33.9 Major depressive disorder, r ecurrent, unspecified F41.9 Anxiety disorder, unspecifie d Assessments Date Code Description Provider 02/08/2020 F90.9 Attention-deficit hyperactivity disorder, unspecified type Ramesh Winslow, PA-C 02/08/2020 F33.9 Major depressive disorder, recur rent, unspecified ELEAZAR Thomas-C 02/08/2020 F41.9 Anxiety disorder, unspecified Ca leb ELEAZAR Winslow-C 02/04/2020 Z00.00 Encounter for genera l adult medical examination without abnormal findings Ana Panchal MD 02/04/2020 R10.9 Unspecified abdominal pain Ana Panchal MD 02/04/2020 F90.9 Attention-deficit hyperactivity disorder, unspecified type Ana Panchal MD 02/04/2020 F33.9 Major depressive disorder, recur rent, unspecified Ana Panchal MD 02/04/2020 F41.9 Anxiety disorder, unspecified An fabián Panchal MD 12/01/2019 F90.9 Attention-deficit hyperactivity disorder, unspecified type Ramesh Winslow, JANICEC 12/01/2019 F33.9 Major depressive disorder, recur rent, unspecified ELEAZAR Thomas-C 11/23/2019 F90.9 Attention-deficit hyperactivity disorder, unspecified type Darlyn Philip, [facility] 11/23/2019 F33.9 Major depressive disorder, recur rent, unspecified Darlyn Philip, [facility] 11/04/2019 F90.9 Attention-deficit hyperactivity disorder, unspecified type Ramesh Winslow, PA-C 11/04/2019 F33.9 Major depressive disorder, recur rent, unspecified Ramesh Winslow, PA-C 10/07/2019 F33.9 Major depressive disorder, recur rent, unspecified Ramesh Winslow, PA-C 10/07/2019 F90.9 Attention-deficit hyperactivity disorder, unspecified type Ramesh Winslow PA-C 10/05/2019 F33.9 Major depressive disorder, recur rent, unspecified Darlyn Tamera, [facility] 10/05/2019 F90.9 Attention-deficit hyperactivity disorder, unspecified type Darlyn Tamera, [facility] 09/09/2019 F33.9 Major depressive disorder, recur rent, unspecified Carmelita Sharma, RN 09/09/2019 F90.9 Attention-deficit hyperactivity disorder, unspecified type Carmelita Sharma, RN 09/01/2019 F33.9 Major depressive disorder, recur rent, unspecified Darlyn Tamera, [facility] 09/01/2019 F90.9 Attention-deficit hyperactivity disorder, unspecified type Darlyn Tamera, [facility] 08/12/2019 F33.9 Major depressive disorder, recur rent, unspecified Ila Valencia, [facility] 08/12/2019 F90.9 Attention-deficit hyperactivity disorder, unspecified type Ila Valencia, [facility] Plan of Treatment Future Appointment(s):* 05/10/2020 10:20 am - Ramesh Winslow PA-C at Behavioral Health * 02/15/2020 4:15 pm - Arlen Palomino NP at [facility] * 08/04/2020 9:20 am - Ana Panchal MD at [facility] Functional Status Functional Condition Comment Date Status Glasses Active Mental Status Description No Information Available Referrals Description No Information Available
--- OUTSIDE RECORDS SUMMARY | 2020-03-31 08:55 | CCD ---
Continuity of Care Document (CCD) Created on: 02/04/2020 Mima Cifuentes External Reference #: [id number] : 1990 Sex: Female Author Author Mima PANCHAL MD Organization Unknown Address [address] [place] [id number] Phone [phone] Care Team Providers Care Senior Wind Turbine Technician Name Role Phone Ana Panchal MD AUTM [phone] [facility] [address] [facility] AUTM [phone] [facility] Gastroenterology AUTM [phone] Problems Active Problems Provider Date Depressive disorder [...] . Procedures Date Code Description Status 02/04/2020 11177 Admin Patient Focused Health Ris k Assessment Instrument Completed 02/04/2020 02301 Brief Emotional/Beha v Assessment W/ Scoring Doc Per Standard Inst Completed 10/07/2019 12414 Psychiatric Diag Eval W/Medical Service Completed 08/12/2019 57131 Psychiatric Diagnostic Evaluatio n Completed Medical Devices Description No Information Available Encounters Description No Information Available Assessments Date Code Description Provider 12/01/2019 F90.9 Attention-deficit hyperactivity disorder, unspecified type Ramesh Winslow PA-C 12/01/2019 F33.9 Major depressive disorder, recur rent, unspecified JANICE ThomasC 11/23/2019 F90.9 Attention-deficit hyperactivity disorder, unspecified type Darlyn Tamera, [facility] 11/23/2019 F33.9 Major depressive disorder, recur rent, unspecified Darlyn Tamera, [facility] 11/04/2019 F90.9 Attention-deficit hyperactivity disorder, unspecified type Ramesh Winslow, PA-C 11/04/2019 F33.9 Major depressive disorder, recur rent, unspecified Ramesh Wisnlow, PA-C 10/07/2019 F33.9 Major depressive disorder, recur rent, unspecified Ramesh Winslow, PA-C 10/07/2019 F90.9 Attention-deficit hyperactivity disorder, unspecified type Ramesh Nayla, PA-C 10/05/2019 F33.9 Major depressive disorder, recur rent, unspecified Darlyn Tamera, [facility] 10/05/2019 F90.9 Attention-deficit hyperactivity disorder, unspecified type Darlyn Tamera, [facility] 09/09/2019 F33.9 Major depressive disorder, recur rent, unspecified Carmelita Sharma, RN 09/09/2019 F90.9 Attention-deficit hyperactivity disorder, unspecified type Carmelita Sharma, RN 09/01/2019 F33.9 Major depressive disorder, recur rent, unspecified Darlyn Tamera, [facility] 09/01/2019 F90.9 Attention-deficit hyperactivity disorder, unspecified type Darlyn Tamera, [facility] 08/12/2019 F33.9 Major depressive disorder, recur rent, unspecified Ila Valencia, [facility] 08/12/2019 F90.9 Attention-deficit hyperactivity disorder, unspecified type Ila Valencia, [facility] Plan of Treatment Future Appointment(s):* 08/04/2020 9:20 am - Ana Panchal MD at Family Practice * 02/08/2020 10:20 am - Ramesh Winslow PA-C at [facility] Functional Status Functional Condition Comment Date Status Glasses Active Mental Status Description No Information Available Referrals Description No Information Available
--- OUTSIDE RECORDS SUMMARY | 2020-03-31 08:55 | CCD | Continuity of Care Document ---
Author Author Mima PHILIP [facility] Organization Unknown Address [facility] Behavioral Health [address] [place] [address] Phone [phone] Care Team Providers Care Dealmaker Name Role Phone Ana Panchal MD AUTM [phone] [facility] AUTM [phone] [facility] Gastroenterology AUTM [phone] Problems Active Problems Provider Date Anxiety state Ana Panchal MD Onset: 01/21/2019 Irritable bowel syndrome characterized by alternating bowel habit Ana Panchal MD Onset: 01/21/2019 Attention-deficit hyperactivity disorder, unspecified type Ana Panchal MD Onset: 01/21/2019 Recurrent major depression in partial remission Rodolfo Piper rn, KHUSHI Onset: 03/16/2020 Family problems Rodolfo White LCSW [...] BSA (Body Surface Area) 1.86 m2 Results Test Acquired Date Facility Test Result H/L Range Note Laboratory test finding 03/16/2020 [facility] Pap Smear Thin Prep <pending> Procedures Date Code Description Status 03/16/2020 67366 Psychiatric Diagnostic Evaluatio n Completed 02/04/2020 65693 Admin Patient Focused Health Ris k Assessment Instrument Completed 02/04/2020 37966 Brief Emotional/Beha v Assessment W/ Scoring Doc Per Standard Inst Completed 10/07/2019 03040 Psychiatric Diag Eval W/Medical Service Completed Medical Devices Description No Information Available Encounters Description No Information Available Assessments Date Code Description Provider 03/25/2020 F90.9 Attention-deficit hyperactivity disorder, unspecified type Darlyn Philip, [facility] 03/25/2020 F33.41 Major depressive disorder, recur rent, in partial remission Darlyn Philip, [facility] 03/25/2020 Z63.0 Problems in relationship with sp ouse or partner Darlyn Philip, [facility] 03/25/2020 F41.9 Anxiety disorder, unspecified Th audra Philip, [facility] 03/16/2020 F90.9 Attention-deficit hyperactivity disorder, unspecified type Rodolfo Christopher, [facility] 03/16/2020 Z01.419 Encounter for gyneco logical examination (general) (routine) without abnormal findings Arlen Palomino, [employer] 03/16/2020 F33.41 Major depressive disorder, recur rent, in partial remission Rodolfo White, [facility] 03/16/2020 Z30.011 Encounter for initial prescripti on of contraceptive pills Arlen Palomino, GILBERT 03/16/2020 Z63.0 Problems in relationship with sp ouse or partner Rodolfo White, [facility] 02/08/2020 F90.9 Attention-deficit hyperactivity disorder, unspecified type Ramesh Winslow PA-C 02/08/2020 F33.9 Major depressive disorder, recur rent, unspecified Ramesh Winslow PA-C 02/08/2020 F41.9 Anxiety disorder, unspecified Ca oleg [...] Attention-deficit hyperactivity disorder, unspecified type Darlyn Philip, [facility] 11/23/2019 F33.9 Major depressive disorder, recur rent, unspecified Darlyn Philip, [facility] 11/04/2019 F90.9 Attention-deficit hyperactivity disorder, unspecified type Ramesh Winslow, [facility]-C 11/04/2019 F33.9 Major depressive disorder, recur rent, unspecified Ramesh Winslow, JANICEC 10/07/2019 F33.9 Major depressive disorder, recur rent, unspecified Ramesh Winslow, ELEAZAR-C 10/07/2019 F90.9 Attention-deficit hyperactivity disorder, unspecified type Ramesh Winslow, CHANDAN 10/05/2019 F33.9 Major depressive disorder, recur rent, unspecified Darlynneol Philip, [facility] 10/05/2019 F90.9 Attention-deficit hyperactivity disorder, unspecified type [facility]LE Gong Plan of Treatment Future Appointment(s):* 04/18/2020 4:00 pm - [facility]LE Gong at Behavioral Health * 04/07/2020 1:00 pm - [facility] at Behavioral Health * 05/10/2020 10:20 am - Ramesh Winslow PA-C at Behavioral Health * 08/04/2020 9:20 am - Ana Panchal MD at [facility] Functional Status Functional Condition Comment Date Status Glasses Active Mental Status Description No Information Available Referrals Description No Information Available
--- OUTSIDE RECORDS SUMMARY | 2020-03-31 08:55 | CCD | Continuity of Care Document ---
Author Author Mima GUIDO MD Organization Unknown Address [address] [address] Phone [phone] Care Team Providers Care Sales And In Home Delivery Specialist Name Role Phone Ana Panchal M.D. AUTM [phone] AUTM Unavailable [facility] Surgery Practice - Surgery AUTM Scottie Marin MD AUTM [phone] Problems Description No Active Problems Social History Type Date Description Comments Sex Unknown ETOH Use Denies alcohol use Recreational Drug Use Denies Drug Use Tobacco Use Start: Unknown Denies Smoking Allergies, Adverse Reactions, Alerts Description No Known Drug Allergies Medications Active Medications SIG Qnty Indications Ordering Provide r Date Ferrous Sulfate 325(65Fe) mg Table ts 1 po bid 60tabs Vani Murdock CNM 08/20/2012 Adderall XR 25mg Caps ER 24HR 1 by mouth every day Unknown Wellbutrin SR 150mg Tablets ER 12H R 1 by mouth twice a day 30tabs Unknown Loryna 3-0.02mg Tablets Take 1 Tablet By Mouth Once Daily Unknown Vitamin C 500mg Tablets every day Unknown Immunizations Description No Information Available Vital Signs Date Vital Result Comment 02/23/2020 10:07am BP Systolic 115 mmHg BP Diastolic 77 mmHg Height 67 inches 5'7" Weight 161.50 lb BMI (Body Mass Index) 25.3 kg/m2 [place] Body Weight 135 lb Weight 73.256 kg BSA (Body Surface Area) 1.85 m2 01/05/2020 8:44am BP Systolic 114 mmHg BP Diastolic 77 mmHg Height 67 inches 5'7" Weight 167.00 lb BMI (Body Mass Index) 26.2 kg/m2 [place] Body Weight 135 lb Weight 75.751 kg BSA (Body Surface Area) 1.87 m2 Results Test Acquired Date Facility Test Result H/L Range Note Fat Fecal Qualitative 01/06/2020 [facility] Main Lab [address] [place] [address] [id number] [phone] Fats Neutral Normal Normal . 1 Fats Total Normal Normal . 2 Laboratory test finding 01/06/2020 [facility] Main Lab [address] [place] [address] [phone] Pancreatic Elastase Stool >500 Normal >200 3 Calprotectin Stool <16 ug/g Normal 0-120 4 Laboratory test finding 11/20/2019 [facility] [address] [place] [address] [id number] [phone] Pathology Request For Service (SEE NOTE) 5 1 Normal (<60 Droplets/HPF) 2 Normal (<100 Droplets/HPF) 3 Result Units: ug Elast./g Severe Pancreatic Insufficiency: <100 Moderate Pancreatic Insufficiency: 100 - 200 Normal: >200 4 Concentration Interpreta tion Follow-Up <16 - 50 ug/g Normal None >50 -120 ug/g Borderline Re-evaluate in 4-6 weeks >120 ug/g Abnormal Repeat as clinically indicated Performed at: - [facility] [address] [id number] Corrosion Technician: Rosie Segura MD, Phone: [phone] Performed at: - [facility] [address] [id number] Corrosion Technician: Josselin Guzman MD, Phone: [phone] FINAL DIAGNOSIS A - Duodenum, biopsy: Small intestinal mucosa with preserved villous architecture. B - Gastric biopsy: Gastric mucosa, without significant acute or chronic inflammation. No H. pylori is noted. C - Random colon biopsy: Fragments of benign colonic mucosa, no evidence for microscopic colitis is noted. 11/23/2019 - 1229 CLINICAL DIAGNOSIS Nausea, vomiting, constipation 11/20/2019 - 1425 GROSS DIAGNOSIS A - Received in formalin labeled "duodenal biopsy" is a 0.6 x 0.3 x 0.3 cm. aggregate of mucosal fragments. All in one. B - Received in formalin labeled "gastric biopsy" is a 0.3 x 0.2 x 0.2 cm. portion of mucosa. All in one. C - Received in formalin labeled "random colon biopsy" is a 0.8 x 0.2 x 0.2 cm. aggregate of mucosal fragments. All in one. - 11/20/2019 - 1425 Signed Charlotte Yeh MD 11/23/2019 1317 Procedures Date Code Description Status 11/20/2019 05753 Colonoscopy Flexible Proximal To Splenic Flexure W/Biopsy Single/ Completed 11/20/2019 30294 Endoscopy Upper GI Biopsy Comple mika Medical Devices Description No Information Available Encounters Description No Information Available Assessments Date Code Description Provider 01/05/2020 R10.84 Generalized abdominal pain Abelardo Birmingham MD 01/05/2020 K82.8 Other specified diseases of gall bladder Tab Guido MD 11/20/2019 R19.4 Change in bowel habit Scottie camacho MD 11/20/2019 K64.8 Other hemorrhoids Scottie Marin MD 11/20/2019 R10.84 Generalized abdominal pain Scottie Marin MD 11/20/2019 R11.0 Nausea Scottie Marin MD Plan of Treatment No Information Available Functional Status Description No Information Available Mental Status Description No Information Available Referrals Refer to Reason for Referral Status Appt Date P Surgery Practice Closed [phone] Tab Guido MD BILIARY DYSKINESIA Closed [address] [address] [phone]
--- OUTSIDE RECORDS SUMMARY | 2020-03-31 08:55 | CCD | Continuity of Care Document ---
Author Author Mima [facility] Organization Unknown Address [facility] Behavioral Health [address] [place] [address] Phone [phone] Care Team Providers Care Education Rep Name Role Phone Ana Panchal MD AUTM [phone] [facility] AUTM [facility] Gastroenterology AUTM [phone] Problems Active Problems Provider Date Depressive disorder [...] H/L Range Note Laboratory test finding 03/16/2020 [facility] Pap Smear Thin Prep <pending> Procedures Date Code Description Status 02/04/2020 78023 Admin Patient Focused Health Ris k Assessment Instrument Completed 02/04/2020 15439 Brief Emotional/Beha v Assessment W/ Scoring Doc Per Standard Inst Completed 10/07/2019 21970 Psychiatric Diag Eval W/Medical Service Completed Medical Devices Description No Information Available Encounters Type Date Location Provider Dx Diagnosis Office Visit 03/16/2020 9:[address]a [facility] Arlen Palomino NP Z01.419 Encntr for pipe stress engineer exam (general) (routine) w/o abn findings Z30.011 Encounter for initial prescr iption of contraceptive pills Assessments Date Code Description Provider 03/16/2020 Z01.419 Encounter for gyneco logical examination (general) (routine) without abnormal findings Arlen Palomino NP 03/16/2020 Z30.011 Encounter for initial prescripti on of contraceptive pills Arlen Palomino NP 02/08/2020 F90.9 Attention-deficit hyperactivity disorder, unspecified type Ramesh Winslow, PA-C 02/08/2020 F33.9 Major depressive disorder, recur rent, unspecified Ramesh Nayla, PA-C 02/08/2020 F41.9 Anxiety disorder, unspecified Ca leb Nayla, PA-C 02/04/2020 Z00.00 Encounter for genera l [...] hyperactivity disorder, unspecified type Ramesh Winslow, PA-C 12/01/2019 F33.9 Major depressive disorder, recur rent, unspecified Ramesh Winslow, ELEAZAR-C 11/23/2019 F90.9 Attention-deficit hyperactivity disorder, unspecified type Darlyn Philip, [facility] 11/23/2019 F33.9 Major depressive disorder, recur rent, unspecified Darlyn Philip, [facility] 11/04/2019 F90.9 Attention-deficit hyperactivity disorder, unspecified type Ramesh Nayla, PA-C 11/04/2019 F33.9 Major depressive disorder, recur rent, unspecified Ramesh Nayla, PA-C 10/07/2019 F33.9 Major depressive disorder, recur rent, unspecified Ramesh Nayla, PA-C 10/07/2019 F90.9 Attention-deficit hyperactivity disorder, unspecified type Ramesh CHANDAN Winslow 10/05/2019 F33.9 Major depressive disorder, recur rent, unspecified MILE Gong 10/05/2019 F90.9 Attention-deficit hyperactivity disorder, unspecified type MILE Gong Plan of Treatment Future Appointment(s):* 05/10/2020 10:20 am - Ramesh Winslow PA-C at [facility] * 08/04/2020 9:20 am - Ana Panchal MD at [facility] Functional Status Functional Condition Comment Date Status Glasses Active Mental Status Description No Information Available Referrals Description No Information Available
--- OUTSIDE RECORDS SUMMARY | 2020-03-31 08:55 | CCD | Continuity of Care Document ---
Author Author Mima GUIDO MD Organization Unknown Address [address] [address] Phone [phone] Care Team Providers Care Gin Pole Operator Name Role Phone Ana Panchal M.D. AUTM [phone] AUTM Unavailable [facility] [place] Practice - Surgery AUTM Scottie Marin MD AUTM [phone] Problems Description No Active Problems Social History [...] Vitamin C 500mg Tablets every day Unknown History Medications Suprep Bowel Prep Kit 17.5-3.13-1.6GM/177ML Solution as directed - see dr akbar instructions 1Kit R19.7 Scottie Marin MD 08/18/2019 - 01/04/2020 Milk Of Magnesia 7.75% Suspension take 60 milliliters by mouth about 2-3 days before colonoscopy prep 360ml R19.7 Scottie Marin MD 08/18/2019 - 01/04/2020 Immunizations Description No Information Available Vital Signs Date Vital Result Comment 01/05/2020 8:44am BP Systolic 114 mmHg BP Diastolic 77 mmHg Height 67 inches 5'7" Weight 167.00 lb BMI (Body Mass Index) 26.2 kg/m2 [place] Body Weight 135 lb Weight 75.751 kg 08/18/2019 1:53pm BP Systolic 129 mmHg BP Diastolic 77 mmHg Height 67 inches 5'7" Weight 169.00 lb BMI (Body Mass Index) 26.5 kg/m2 [place] Body Weight 135 lb Weight 76.658 kg Results Test Acquired Date Facility Test Result H/L Range Note Laboratory test finding 11/20/2019 [facility] Main Lab [address] [place], [place] 1937158 [phone] Pathology Request For Service (SEE NOTE) 1 1 FINAL DIAGNOSIS A - Duodenum, biopsy: Small [...] 1317 Procedures Date Code Description Status 11/20/2019 97390 Colonoscopy Flexible Proximal To Splenic Flexure W/Biopsy Single/ Completed 11/20/2019 13080 Endoscopy Upper GI Biopsy Comple mika Medical Devices Description No Information Available Encounters Type Date Location Provider Dx Diagnosis Office Visit 08/18/2019 1:45p [facility] E[facility]GI [facility] Scottie Marin MD R19.7 Diarrhea, unspecified K59.00 Constipation, unspecified R11.0 Nausea R10.84 Generalized abdominal pain Assessments Date Code Description Provider 01/05/2020 R10.84 Generalized abdominal pain Abelardo Birmingham MD 01/05/2020 K82.8 Other specified diseases of gall bladder Tab Guido MD 11/20/2019 R19.4 Change in bowel habit Scottie camacho MD 11/20/2019 K64.8 Other hemorrhoids Scottie Marin MD 11/20/2019 R10.84 Generalized abdominal pain Scottie Marin MD 11/20/2019 R11.0 Nausea Scottie Marin MD 08/18/2019 R19.7 Diarrhea, unspecified Scottie camacho MD 08/18/2019 K59.00 Constipation, unspecified Scottie Marin MD 08/18/2019 R11.0 Nausea Scottie Marin MD 08/18/2019 R10.84 Generalized abdominal pain Scottie Marin MD Plan of Treatment 01/05/2020 - Tab Guido MD* R10.84 Generalized abdominal pain * K82.8 Other specified diseases of gallbladder* Comments:* 1.Discussed clinical findings as well as pathophysiology of gallstone formation and symptomatic gallstones.2. Discussed need for surgery as well as details and expected postoperative course after laparoscopic cholecystectomy.3. Discussed risks and benefits of cholecystectomy including but not limited to the risks of bl eeding, infection, bile leak and biliary tract injury as well as possibility of converting to an open procedure.4. Gave prescription for augmentin x 14 days for presumed mild cholecystitis.1. Discussed with patient results of HIDA scan and its clinical implications. 2. Discussed treatment options: laparoscopic cholecystectomy. Outcomes on patients with typical GB pain syndromes show pain relief in 9/10 patients with abnormal HIDA scan. Patients with atypical symptoms show relief in 5-6/10 patients with abnormal HIDA scan. Thus, patient aware that doing cholecystectomy may not totally alleviate symptoms. Patient understands and is willing to proceed.4. Discussed details of procedure, expected postoperative course, and risks and benefits including possibility of converting to open procedure. Functional Status Description No Information Available Mental Status Description No Information Available Referrals Refer to Reason for Referral Status Appt Date [facility] [place] Practice Closed [phone] Tab Guido MD BILIARY DYSKINESIA Closed [address] [place] [address] [phone]
--- OUTSIDE RECORDS SUMMARY | 2020-03-31 08:55 | CCD ---
Author Author [facility] Organization [facility] Address Unknown Phone Unavailable Care Team Providers Care Soda Fountain Manager Name Role Phone GRIS HAYNES Unavailable Unavailable [facility]_510, [id number] Unavailable Unavailable Alfred Stauffer MD Unavailable Unavailable Alfred Stauffer MD Unavailable Unavailable Alfred Stauffer MD Unavailable Unavailable Alfred Stauffer MD Unavailable Unavailable Alfred Stauffer MD Unavailable Unavailable Alfred Stauffer MD Unavailable Unavailable Alfred Stauffer MD Unavailable Unavailable Alfred Stauffer MD Unavailable Unavailable Alfred Stauffer MD Unavailable Unavailable Alfred Stauffer MD Unavailable Unavailable Alfred Stauffer MD Unavailable Unavailable Alfred Stauffer MD Unavailable Unavailable Alfred Stauffer MD Unavailable Unavailable Alfred Stauffer MD Unavailable Unavailable Alfred Stauffer MD Unavailable Unavailable Alfred Stauffer MD Unavailable Unavailable Alfred Stauffer MD Unavailable Unavailable Alfred Stauffer MD Unavailable Unavailable Alfred Stauffer MD Unavailable Unavailable Alfred Stauffer MD Unavailable Unavailable Alfred Stauffer MD Unavailable Unavailable Alfred Stauffer MD Unavailable Unavailable Alfred Stauffer MD Unavailable Unavailable Alfred Stauffer MD Unavailable Unavailable Alfred Stauffer MD Unavailable Unavailable Alfred Stauffer MD Unavailable Unavailable Alfred Stauffer MD Unavailable Unavailable Amari PAGE MD Unavailable Unavailable Amari PAGE MD Unavailable Unavailable Amari PAGE MD Unavailable Unavailable Amari PAGE MD Unavailable Unavailable Amari PAGE MD Unavailable Unavailable Amari PAGE MD Unavailable Unavailable Amari PAGE MD Unavailable Unavailable Amari PAGE MD Unavailable Unavailable Amari PAGE MD Unavailable Unavailable Amari PAGE MD Unavailable Unavailable Amari PAGE MD Unavailable Unavailable Amari PAGE MD Unavailable Unavailable Amari PAGE MD Unavailable Unavailable Amari PAGE MD Unavailable Unavailable Amari PAGE MD Unavailable Unavailable Amari PAGE MD Unavailable Unavailable Amari PAGE MD Unavailable Unavailable Amari PAGE MD Unavailable Unavailable Amari PAGE MD Unavailable Unavailable Amari PAGE MD Unavailable Unavailable Amari PAGE MD Unavailable Unavailable Amari PAGE MD Unavailable Unavailable Amari PAGE MD Unavailable Unavailable Amari PAGE MD Unavailable Unavailable Amari PAGE MD Unavailable Unavailable Amari PAGE MD Unavailable Unavailable Amari PAGE MD Unavailable Unavailable BROWNING, J ABHISHEK PA Unavailable Unavailable BROWNING, J ABHISHEK PA Unavailable Unavailable BROWNING, J ABHISHEK PA Unavailable Unavailable BROWNING, J ABHISHEK PA Unavailable Unavailable BROWNING, J ABHISHEK PA Unavailable Unavailable BROWNING, J ABHISHEK PA Unavailable Unavailable BROWNING, J ABHISHEK PA Unavailable Unavailable BROWNING, J ABHISHEK PA Unavailable Unavailable BROWNING, J ABHISHEK PA Unavailable Unavailable BROWNING, J ABHISHEK PA Unavailable Unavailable BROWNING, J ABHISHEK PA Unavailable Unavailable BROWNING, J ABHISHEK PA Unavailable Unavailable BROWNING, J ABHISHEK PA Unavailable Unavailable BROWNING, J ABHISHEK PA Unavailable Unavailable BROWNING, J ABHISHEK PA Unavailable Unavailable BROWNING, J ABHISHEK PA Unavailable Unavailable BROWNING, J ABHISHEK PA Unavailable Unavailable BROWNING, J ABHISHEK PA Unavailable Unavailable BROWNING, J ABHISHEK PA Unavailable Unavailable BROWNING, J ABHISHEK PA Unavailable Unavailable BROWNING, J ABHISHEK PA Unavailable Unavailable BROWNING, J ABHISHEK PA Unavailable Unavailable BROWNING, J ABHISHEK PA Unavailable Unavailable BROWNING, J ABHISHEK PA Unavailable Unavailable BROWNING, J ABHISHEK PA Unavailable Unavailable BROWNING, J ABHISHEK PA Unavailable Unavailable BROWNING, J ABHISHEK PA Unavailable Unavailable ABIGAIL, MALGORZATA Unavailable Unavailable BROWNING, J ABHISHEK PA Unavailable Unavailable BROWNING, J ABHISHEK PA Unavailable Unavailable BROWNING, J ABHISHEK PA Unavailable Unavailable BROWNING, J ABHISHEK PA Unavailable Unavailable RBOWNING, J ABHISHEK PA Unavailable Unavailable BROWNING, J ABHISHEK PA Unavailable Unavailable BROWNING, J ABHISHEK PA Unavailable Unavailable BROWNING, J ABHISHEK PA Unavailable Unavailable BROWNING, J ABHISHEK PA Unavailable Unavailable BROWNING, J ABHISHEK PA Unavailable Unavailable BROWNING, J ABHISHEK PA Unavailable Unavailable BROWNING, J ABHISHEK PA Unavailable Unavailable BROWNING, J ABHISHEK PA Unavailable Unavailable BROWNING, J ABHISHEK PA Unavailable Unavailable BROWNING, J ABHISHEK PA Unavailable Unavailable BROWNING, J ABHISHEK PA Unavailable Unavailable BROWNING, J ABHISHEK PA Unavailable Unavailable BROWNING, J ABHISHEK PA Unavailable Unavailable BROWNING, J ABHISHEK PA Unavailable Unavailable BROWNING, J ABHISHEK PA Unavailable Unavailable BROWNING, J ABHISHEK PA Unavailable Unavailable BROWNING, J ABHISHEK PA Unavailable Unavailable BROWNING, J ABHISHEK PA Unavailable Unavailable BROWNING, J ABHISHEK PA Unavailable Unavailable BROWNING, J ABHISHEK PA Unavailable Unavailable BROWNING, J ABHISHEK PA Unavailable Unavailable BROWNING, J ABHISHEK PA Unavailable Unavailable Wilmihaelae, Du Lockharti LEVER OPERATOR Unavailable Unavailable Kunnumpurath, F Ana MD Unavailable Unavailable Kunnumpurath, F Ana MD Unavailable Unavailable Kunnumpurath, F Ana MD Unavailable Unavailable Kunnumpurath, F Ana MD Unavailable Unavailable Kunnumpurath, F Ana MD Unavailable Unavailable Kunnumpurath, F Ana MD Unavailable Unavailable Kunnumpurath, F Ana MD Unavailable Unavailable Kunnumpurath, F Ana MD Unavailable Unavailable Kunnumpurath, F Ana MD Unavailable Unavailable Kunnumpurath, F Ana MD Unavailable Unavailable Kunnumpurath, F Ana MD Unavailable Unavailable Kunnumpurath, F Ana MD Unavailable Unavailable Kunnumpurath, F Ana MD Unavailable Unavailable Kunnumpurath, F Ana MD Unavailable Unavailable Kunnumpurath, F Ana MD Unavailable Unavailable Kunnumpurath, F Ana MD Unavailable Unavailable Kunnumpurath, F Ana MD Unavailable Unavailable Kunnumpurath, F Ana MD Unavailable Unavailable Kunnumpurath, F Ana MD Unavailable Unavailable Kunnumpurath, F Ana MD Unavailable Unavailable Kunnumpurath, F Ana MD Unavailable Unavailable Kunnumpurath, F Ana MD Unavailable Unavailable Kunnumpurath, F Ana MD Unavailable Unavailable Kunnumpurath, F Ana MD Unavailable Unavailable Kunnumpurath, F Ana MD Unavailable Unavailable Kunnumpurath, F Ana MD Unavailable Unavailable Kunnumpurath, F Ana MD Unavailable Unavailable Kunnumpurath, F Ana MD Unavailable Unavailable Kunnumpurath, F Ana MD Unavailable Unavailable Kunnumpurath, F Ana MD Unavailable Unavailable Kunnumpurath, F Ana MD Unavailable Unavailable Kunnumpurath, F Ana MD Unavailable Unavailable Kunnumpurath, F Ana MD Unavailable Unavailable Kunnumpurath, F Ana MD Unavailable Unavailable Kunnumpurath, F Ana MD Unavailable Unavailable Kunnumpurath, F Ana MD Unavailable Unavailable Kunnumpurath, F Ana MD Unavailable Unavailable Kunnumpurath, F Ana MD Unavailable Unavailable GUALLPA, NATALIA VARINDER DIRECTOR OF CARDIOLOGY SERVICE LINE Unavailable Unavailable GUALLPA, NATALIA VARINDER DIRECTOR OF CARDIOLOGY SERVICE LINE Unavailable Unavailable GUALLPA, NATALIA VARINDER DIRECTOR OF CARDIOLOGY SERVICE LINE Unavailable Unavailable GUALLPA, NATALIA VARINDER DIRECTOR OF CARDIOLOGY SERVICE LINE Unavailable Unavailable GUALLPA, NATALIA VARINDER DIRECTOR OF CARDIOLOGY SERVICE LINE Unavailable Unavailable GUALLPA, NATALIA VARINDER DIRECTOR OF CARDIOLOGY SERVICE LINE Unavailable Unavailable GUALLPA, NATALIA VARINDER DIRECTOR OF CARDIOLOGY SERVICE LINE Unavailable Unavailable GUALLPA, NATALIA VARINDER DIRECTOR OF CARDIOLOGY SERVICE LINE Unavailable Unavailable GUALLPA, NATALIA VARINDER DIRECTOR OF CARDIOLOGY SERVICE LINE Unavailable Unavailable GUALLPA, NATALIA VARINDER DIRECTOR OF CARDIOLOGY SERVICE LINE Unavailable Unavailable GUALLPA, NATALIA VARINDER DIRECTOR OF CARDIOLOGY SERVICE LINE Unavailable Unavailable GUALLPA, NATALIA VARINDER DIRECTOR OF CARDIOLOGY SERVICE LINE Unavailable Unavailable GUALLPA, NATALIA VARINDER DIRECTOR OF CARDIOLOGY SERVICE LINE Unavailable Unavailable GUALLPA, NATALIA VARINDER DIRECTOR OF CARDIOLOGY SERVICE LINE Unavailable Unavailable GUALLPA, NATALIA VARINDER DIRECTOR OF CARDIOLOGY SERVICE LINE Unavailable Unavailable GUALLPA, NATALIA VARINDER DIRECTOR OF CARDIOLOGY SERVICE LINE Unavailable Unavailable GUALLPA, NATALIA VARINDER DIRECTOR OF CARDIOLOGY SERVICE LINE Unavailable Unavailable GUALLPA, NATALIA VARINDER DIRECTOR OF CARDIOLOGY SERVICE LINE Unavailable Unavailable GUALLPA, NATALIA VARINDER DIRECTOR OF CARDIOLOGY SERVICE LINE Unavailable Unavailable GUALLPA, NATALIA VARINDER DIRECTOR OF CARDIOLOGY SERVICE LINE Unavailable Unavailable GUALLPA, NATALIA VARINDER DIRECTOR OF CARDIOLOGY SERVICE LINE Unavailable Unavailable GUALLPA, NATALIA VARINDER DIRECTOR OF CARDIOLOGY SERVICE LINE Unavailable Unavailable GUALLPA, NATALIA VARINDER DIRECTOR OF CARDIOLOGY SERVICE LINE Unavailable Unavailable REINDL, DEV AMBRIZ Unavailable Unavailable REINDL, DEV AMBRIZ Unavailable Unavailable REINDL, DEV AMBRIZ Unavailable Unavailable REINDL, DEV AMBRIZ Unavailable Unavailable REINDL, DEV AMBRIZ Unavailable Unavailable REINDL, DEV AMBRIZ Unavailable Unavailable REINDL, DEV AMBRIZ Unavailable Unavailable REINDL, DEV AMBRIZ Unavailable Unavailable REINDL, DEV AMBRIZ Unavailable Unavailable REINDL, DEV AMBRIZ Unavailable Unavailable REINDL, DEV AMBRIZ Unavailable Unavailable REINDL, DEV AMBRIZ Unavailable Unavailable REINDL, DEV AMBRIZ Unavailable Unavailable REINDL, DEV AMBRIZ Unavailable Unavailable REINDL, DEV AMBRIZ Unavailable Unavailable REINDL, DEV AMBRIZ Unavailable Unavailable REINDL, DEV AMBRIZ Unavailable Unavailable REINDL, DEV AMBRIZ Unavailable Unavailable REINDL, DEV AMBRIZ Unavailable Unavailable REINDL, DEV AMBRIZ Unavailable Unavailable REINDL, DEV AMBRIZ Unavailable Unavailable REINDL, DEV AMBRIZ Unavailable Unavailable REINDL, DEV AMBRIZ Unavailable Unavailable REINDL, DEV AMBRIZ Unavailable Unavailable REINDL, DEV AMBRIZ Unavailable Unavailable REINDL, DEV AMBRIZ Unavailable Unavailable REINDL, DEV AMBRIZ Unavailable Unavailable REINDL, DEV AMBRIZ Unavailable Unavailable REINDL, DEV AMBRIZ Unavailable Unavailable REINDL, DEV AMBRIZ Unavailable Unavailable REINDL, DEV AMBRIZ Unavailable Unavailable REINDL, DEV AMBRIZ Unavailable Unavailable REINDL, DEV AMBRIZ Unavailable Unavailable REINDL, DEV AMBRIZ Unavailable Unavailable REINDL, DEV AMBRIZ Unavailable Unavailable REINDL, DEV AMBRIZ Unavailable Unavailable REINDL, DEV AMBRIZ Unavailable Unavailable REINDL, DEV AMBRIZ Unavailable Unavailable REINDL, DEV AMBRIZ Unavailable Unavailable REINDL, DEV AMBRIZ Unavailable Unavailable REINDL, DEV AMBRIZ Unavailable Unavailable REINDL, DEV MD Unavailable Unavailable DEV ALEJANDRO MD Unavailable Unavailable DEV ALEJANDRO MD Unavailable Unavailable Kunnumpurath, F Ana MD Unavailable Unavailable Kunnumpurath, F Ana MD Unavailable Unavailable Kunnumpurath, F Ana MD Unavailable Unavailable Kunnumpurath, F Ana MD Unavailable Unavailable Kunnumpurath, F Ana MD Unavailable Unavailable Kunnumpurath, F Ana MD Unavailable Unavailable Kunnumpurath, F Ana MD Unavailable Unavailable Kunnumpurath, F Ana MD Unavailable Unavailable Kunnumpurath, F Ana MD Unavailable Unavailable Kunnumpurath, F Ana MD Unavailable Unavailable Kunnumpurath, F Ana MD Unavailable Unavailable Kunnumpurath, F Ana MD Unavailable Unavailable Kunnumpurath, F Ana MD Unavailable Unavailable Kunnumpurath, F Ana MD Unavailable Unavailable Kunnumpurath, F Ana MD Unavailable Unavailable Kunnumpurath, F Ana MD Unavailable Unavailable Kunnumpurath, F Ana MD Unavailable Unavailable Kunnumpurath, F Ana MD Unavailable Unavailable Kunnumpurath, F Ana MD Unavailable Unavailable Kunnumpurath, F Ana MD Unavailable Unavailable Kunnumpurath, F Ana MD Unavailable Unavailable Kunnumpurath, F Ana MD Unavailable Unavailable Kunnumpurath, F Ana MD Unavailable Unavailable Kunnumpurath, F Ana MD Unavailable Unavailable Kunnumpurath, F Ana MD Unavailable Unavailable Kunnumpurath, F Ana MD Unavailable Unavailable Kunnumpurath, F Ana MD Unavailable Unavailable Kunnumpurath, F Ana MD Unavailable Unavailable Kunnumpurath, F Ana MD Unavailable Unavailable Kunnumpurath, F Ana MD Unavailable Unavailable Kunnumpurath, F Ana MD Unavailable Unavailable Kunnumpurath, F Ana MD Unavailable Unavailable Kunnumpurath, F Ana MD Unavailable Unavailable Kunnumpurath, F Ana MD Unavailable Unavailable Kunnumpurath, F Ana MD Unavailable Unavailable Kunnumpurath, F Ana MD Unavailable Unavailable Kunnumpurath, F Ana MD Unavailable Unavailable Kunnumpurath, F Ana MD Unavailable Unavailable Re-disclosure Warning The records that you are about to access may contain information from federally-assisted alcohol or drug abuse programs. If such information is present, then the following federally mandated warning applies: This information has been disclosed to you from records protected by federal confidentiality rules (42 CFR part 2). The federal rules prohibit you from making any further disclosure of this information unless further disclosure is expressly permitted by the written consent of the person to whom it pertains or as otherwise permitted by 42 CFR part 2. A general authorization for the release of medical or other information is NOT sufficient for this purpose. The Federal rules restrict any use of the information to criminally investigate or prosecute any alcohol or drug abuse patient.The records that you are about to access may contain highly sensitive health information, the redisclosure of which is protected by Article 27-F of the [facility] Public Health law. If you continue you may have access to information: Regarding HIV / AIDS; Provided by facilities licensed or operated by the [facility] Office of Mental Health; or Provided by the [facility] Office for People With Developmental Disabilities. If such information is present, then the following [facility] mandated warning applies: This information has been disclosed to you from confidential records which are protected by state law. State law prohibits you from making any further disclosure of this information without the specific written consent of the person to whom it pertains, or as otherwise permitted by law. Any unauthorized further disclosure in violation of state law may result in a fine or prison sentence or both. A general authorization for the release of medical or other information is NOT sufficient authorization for further disc losure. Encounters Encounter Providers Location Date Indications Data Source(s ) Outpatient Attender: MALGORZATA HAYESConsultant: Ana ritter MD 03/25/2020 08:52:00 AM [facility] - 03/25/2020 08:52:00 AM [facility] Outpatient Attender: GRIS HAYNESConsultant: Ana molina MD 03/16/2020 11:00:00 AM [facility] - 03/16/2020 11:00:00 AM [facility] Outpatient Attender: VARINDER GUALLPA NPConsultant: Ana molina MD 03/16/2020 09:35:00 AM [facility] - 03/16/2020 09:35:00 AM [facility] Outpatient Attender: VARINDER GUALLPA NP Family Practice 03/16/2020 08 :30:00 AM EST [facility] Outpatient Attender: ABHISHEK BROWNING PAConsultant: Ana whitlock MD 02/08/2020 09:57:00 AM EST - 02/08/2020 09:57:00 AM EST [facility] System Outpatient Attender: ABHISHEK BUSH Family Practice 02/07 09:20:00 AM EST [facility] Outpatient Attender: Ana Panchal MDConsultant: Ana monahan MD 02/04/2020 09:42:00 AM EST - 02/04/2020 09:42:00 AM EST [facility] System Outpatient Attender: Ana Panchal MD Family Practice 1 2019 08:40:00 AM EST [facility] ([facility] Outpatient Attender: ABHISHEK woodr: Iván Stauffer MDConsultant: Ana Panchal MD 12/01/2019 10:40:00 AM EDT - 12/01/2019 10:40:00 AM EDT Health System Outpatient Attender: MALGORZATA Edgarant: Ana ritter MD 11/23/2019 04:00:00 PM EDT - 11/23/2019 04:00:00 PM EDT Health System Outpatient Attender: ABHISHEK woodr: Iván Stauffer MDConsultant: Ana Panchal MD 11/04/2019 08:07:00 AM EDT - 11/04/2019 08:07:00 AM EDT Health System Outpatient Attender: ABHISHEK BUSH Family [facility] 11/03 08:00:00 AM EDT [facility] ([facility] Outpatient Attender: ABHISHEK ocampo: Iván Stauffer MDConsultant: Ana Panchal MD 10/07/2019 10:59:00 AM EDT - 10/07/2019 10:59:00 AM EDT Health System Outpatient Attender: MALGORZATA Ross r: Iván Stauffer MDConsultant: Ana Panchal MD 10/05/2019 03:00:00 PM EDT - 10/05/2019 03:00:00 PM EDT Health System Outpatient Attender: ABHISHEK BROWNING PAConsultant: Ana whitlock MD 09/09/2019 08:01:00 AM EDT - 09/09/2019 08:01:00 AM EDT Health System Outpatient Attender: [id number] [id number] Family [facility] 09/09/2019 08:00:00 AM EDT [facility] ([facility] Outpatient Attender: MALGORZTAA Edgarant: Ana ritter MD 09/01/2019 09:58:00 AM EDT - 09/01/2019 09:58:00 AM EDT Health System Outpatient Attender: DEV Bob/Randolph/Lucero camacho 08/18/2019 01:45:00 PM EDT [facility] ([facility] ) Outpatient Attender: Ila Valencia LEVER OPERATOR Referrer: GRIS HAYNESConsultant: Ana Panchal MD 08/12/2019 11:35:00 AM EDT - 08/12/2019 11:35:00 AM EDT Health System Outpatient Attender: Ana Panchal MD [facility] 0 06/25/2019 08:00:00 AM EDT [facility] ([facility] Outpatient Attender: Ana Panchal MDConsultant: Ana monahan MD 06/25/2019 07:58:00 AM EDT - 06/25/2019 07:58:00 AM EDT Health System Outpatient Attender: Ana Panchal MDConsultant: Ana monahna MD 05/05/2019 07:49:00 AM EDT - 05/05/2019 08:49:00 AM EDT Health System Outpatient Attender: DREA PAGE MD 02:57:00 PM EST - 03/13/2019 02:57:00 PM [facility] Discharge cancelled. Disregard status an d discharged date. Outpatient Attender: Ana Panchal MD 0 02/27/2019 07:41:00 AM EST - 02/27/2019 07:41:00 AM [facility] Outpatient Attender: Ana Panchal MD Family Practice 0 02/27/2019 06:40:00 AM EST [facility] ([facility]) Outpatient Attender: Ana Panchal MD 1 03/24/2018 01:04:00 PM EST - 01/21/2019 01:04:00 PM [facility] Medications Medication Brand Name Start Date Product Form Dose Route Admi nistrative Instructions Pharmacy Instructions Status Indications Reaction Description Data Source(s) Aron Sharp 03/16/2020 12:00:00 AM EST ORAL active [facility] ([facility]) 24 HR Amphetamine aspartate 6.25 MG / Am phetamine Sulfate 6.25 MG / Dextroamphetamine saccharate 6.25 MG / Dextroamphetamine Sulfate 6.25 MG Extended Release Oral Capsule [Adderall] Adderall XR 11/04/2019 12:00:00 AM EDT ORAL active [facility] ( [facility]) 24 HR Methylphenidate Hydrochloride 36 M G Extended Release Oral Tablet [Concerta] Concerta 10/07/2019 12:00:00 AM EDT ORAL com pleted [facility] ([facility]) Suprep Bowel Prep Kit Suprep Bowel Prep Kit 08/18/2019 12:00:00 AM EDT completed [facility] ([facility], ) Magnesium Hydroxide 80 MG/ML Oral Suspension Milk Of Magnesi a 08/18/2019 12:00:00 AM EDT ORAL completed [facility] ([facility], ) Insurance Providers Payer name Policy type / Coverage type Policy ID Covered green party ID Covered green party's relationship to muñoz Policy Muñoz Plan Information [facility] [id number] SP [id number] [facility] [id number] SP [id number] [facility] [id number] SP [id number] [facility]P AT [facility] [id number] 18 [id number] [facility] [id number] 18 [id number] [employer] [place] BS [id number] BLUE CROSS BLUE SHIELD -O/P BS [id number] 18 [id number] BH BLUE CROSS BLUE SHIELD CO [id number] 18 [id number] BCBS JABIER HMO [id number] SP [id number] EXCELLUS BCBS B [id number] P [id number] BCBS [place]ABIER HMO [id number] SP [id number] [place] [id number] SP [id number] [facility] [id number] [facility] [id number] [facility] [id number] [facility] [id number] [facility] [id number] [facility] [id number] [facility] [id number] 2 [id number] [facility] [id number] 2 [id number] ANSI-Not a Secondary Insurance [id number] [facility] HUMANA - O/P [id number] 01 [id number] SELF PAY O [id number] P [id number] [facility] [place] [facility] [id number] HU2 [id number] SELF PAY O UNAVAILABLE P UNAVAILA BLE [facility] [place] [facility] [id number] HU2 [id number] [facility] [place] O [id number] P [id number] [facility] [place] [facility] [id number] HU2 [id number] N REGIONAL CLAIMS MILE -O/P [id number] 01 [id number] [facility] [place] [facility] [id number] HU2 [id number] [place] [place] O [id number] S [id number] MEDICAID JABIER [id number] S [id number] [place] P [id number] C [id number] MEDICAID [id number] SP [id number] [facility] [id number] PARENT [id number] SELF PAY UNAVAILABLE UNAVAILA BLE [facility] [id number] FA2 [id number] N REGIONAL CLAIMS MILE-PHYSICIAN [id number] 19 [id number] N REGIONAL CLAIMS MILE -O/P [id number] 19 [id number] N REGIONAL CLAIMS MILE-CLINIC [id number] 19 [id number] ACTIVE DUTY [id number] SF2 [id number] [facility] [id number] FA2 [id number] Problems, Conditions, and Diagnoses Code Display Name Description Problem Type Effective Dates Data Source(s) 817681193 Family problems Family problems Problem 03/16/2020 12:0 0:00 AM EST [place] ([facility]) [id number] Recurrent major depression in partial re mission Recurrent major depression in partial remission Problem 03/16/2020 12:00:00 AM EST Amari [place] ([facility]) Z630 Problems in relationship with spouse or partner Problems in relationship with spouse or partner Diagnosis 03/16/2020 11:00:00 AM [facility] F3341 Major depressive disorder, recurrent, in partial remission Major depressive disorder, recurrent, in partial remission Diagnosis 0 03/16/2020 11:00:00 AM [facility] F909 Attention-deficit hyperactivity disorder , unspecified type Attention- deficit hyperactivity disorder, unspecified type Diagnosis 03/16 11:00:00 AM [facility] [id number] Encounter for gynecological examination (general) (routine) without abnormal findings Encounter for gynecological examination (general) (routine) without abnormal findings Diagnosis 03/16/2020 09:35:00 AM [facility] F419 Anxiety disorder, unspecified Anxiety disorder, unspec ified Diagnosis 02/04/2020 09:42:00 AM [facility] F339 Major depressive disorder, recurrent, un specified Major depressive disorder, recurrent, unspecified Diagnosis 02/04/2020 09:42:00 AM [facility] R109 Unspecified abdominal pain Unspecified abdominal pain Diagnosis 02/04/2020 09:42:00 AM [facility] Z0001 Encounter for general adult medical exam ination with abnormal findings Encounter for general adult medical examination with abnormal findings Diagnosis 02/04/2020 09:42:00 AM EST [facility] System R197 Diarrhea, unspecified Diarrhea, unspecified Diagnosis 06/25/2019 07:58:00 AM EDT [facility] System F3289 Other specified depressive episodes Other specif ied depressive episodes Diagnosis 06/25/2019 07:58:00 AM EDT Health System Surgeries/Procedures Procedure Description Date Indications Data Source(s) Psychiatric Diagnostic Evaluation 03/16/2020 12:00:00 AM EST [facility] ([facility]) Brief Emotional/Behav Assessment W/ Scoring Doc Per Standard Inst 02/04/2020 12:00:00 AM EST [facility] ([facility]) Admin Patient Focused Health Risk Assessment Instrument 02/04/2020 12:00:00 AM EST [facility] ([facility]) Endoscopy Upper GI Biopsy 11/20/2019 12:00:00 AM EDT [facility] ([facility], ) Colonoscopy Flexible Proximal To Splenic Flexure W/Biopsy Si ngle/ 11/20/2019 12:00:00 AM EDT [facility] ([facility], ) Psychiatric Diag Eval W/Medical Service 10/07/2019 12: 00:00 AM EDT [facility] ([facility]) Psychiatric Diagnostic Evaluation 08/12/2019 12:00:00 AM EDT [facility] ([facility]) Results ID Date Data Source [id number] 03/28/2020 12:00:00 PM EST [facility] Name Value Range Interpretation Code Description Data Nathalie rce(s) Supporting Document(s) SARS coronavirus 2 RNA Not Detected [facility] [place] This lab was ordered by [facility] and reported by [facility]. ID Date Data Source [id number] 12:00:00 AM EST [facility] Name Value Range Interpretation Code Description Data Nathalie rce(s) Supporting Document(s) SARS coronavirus 2 Ag [facility] lab [facility] by [facility] [place]. ID Date Data Source [id number] 03/21/2020 12:00:00 PM EST [facility] Name Value Range Interpretation Code Description Data Nathalie rce(s) Supporting Document(s) SARS coronavirus 2 RNA Not Detected [facility] [place] This lab was ordered by [facility] and reported by [facility]. ID Date Data Source [id number] 03/16/2020 10:04:00 AM EST [facility] ([facility]) Name Value Range Interpretation Code Description Data Nathalie rce(s) Supporting Document(s) Cytology report of Cervical or vaginal smear or scrapi ng Cyto stain.thin prep Laboratory test result [facility] ([facility]) ID Date Data Source [id number] 03/14/2020 12:00:00 PM EST [facility] Name Value Range Interpretation Code Description Data Nathalie rce(s) Supporting Document(s) SARS coronavirus 2 RNA Not Detected [facility] [place] This lab was ordered by [facility] and reported by [facility]. ID Date Data Source [id number] 02/22/2020 01:00:00 PM EST [facility] Name Value Range Interpretation Code Description Data Nathalie rce(s) Supporting Document(s) SARS coronavirus 2 RNA [facility] This lab was ordered by [facility] and reported by [facility]. ID Date Data Source [id number] 02/15/2020 12:45:00 PM EST [facility] Name Value Range Interpretation Code Description Data Nathalie rce(s) Supporting Document(s) SARS coronavirus 2 RNA [facility] This lab was ordered by [facility] and reported by [facility]. ID Date Data Source [id number] 02/01/2020 12:00:00 PM EST [facility] Name Value Range Interpretation Code Description Data Nathalie rce(s) Supporting Document(s) SARS coronavirus 2 RNA [facility] This lab was ordered by [facility] and reported by [facility]. ID Date Data Source [id number] 01/25/2020 12:10:00 PM EST [facility] Name Value Range Interpretation Code Description Data Nathalie rce(s) Supporting Document(s) SARS coronavirus 2 RNA [facility] This lab was ordered by [facility] and reported by [facility]. ID Date Data Source [id number] 01/18/2020 10:23:00 AM EST [facility] Name Value Range Interpretation Code Description Data Nathalie rce(s) Supporting Document(s) SARS coronavirus 2 RNA [facility] This lab was ordered by [facility] and reported by [facility]. ID Date Data Source [id number] 01/11/2020 12:00:00 PM EST [facility] Name Value Range Interpretation Code Description Data Nathalie rce(s) Supporting Document(s) SARS coronavirus 2 RNA [facility] This lab was ordered by [facility] and reported by [facility]. ID Date Data Source [id number] 01/06/2020 08:00:00 AM EST [facility] ([facility], ) Name Value Range Interpretation Code Description Data Nathalie rce(s) Supporting Document(s) Elastase.pancreatic [Mass/mass] in Stool Laboratory test result Normal (applies to non-numeric results) [facility] ([facility]) <content>Result Units: ug Elast./g</cont ent>
<content>Severe Pancreatic Insufficiency: <100</content>
<content>Moderate Pancreatic Insufficiency: 100 - 200</content>
<content>Normal: >200</content>
<content></content> Calprotectin [Mass/mass] in Stool Laboratory test result 0-120 Normal (applies to non-numeric results) [facility] ([facility], ) <content>Concentration Interpretatio n Follow-Up</content>
<content><16 - 50 ug/g Normal None</content>
<content>>50 -120 ug/g Borderline Re-evaluate in 4-6 weeks</content>
<content>>120 ug/g Abnormal Repeat as clinically</content>
<content>indicated</content>
<content>Performed at: RN - [facility]</content>
<content>[address], [place] [id number]</content>
<content>[employer]y Officer: Rosie Segura MD, Phone: [phone]</content>
<content>Performed at: BN - [facility]</content>
<content>[address], [place] [id number]</content>
<content>Army Officer: Josselin Guzman MD, Phone: [phone]</content>
<content></content> ID Date Data Source [id number] 01/06/2020 08:00:00 AM EST [facility] Name Value Range Interpretation Code Description Data Nathalie rce(s) Supporting Document(s) Fats Total Laboratory test result Normal (applies to non-n umeric results) [facility] ([facility]) <content>Normal (<100 Droplets/HPF)</con tent>
<content></content> Fats Neutral Laboratory test result Normal (applies to non -numeric results) [facility] ([facility]) <content>Normal (<60 Droplets/HPF)</cont ent>
<content></content> ID Date Data Source [id number] 01/04/2020 11:39:00 AM EST [facility] Name Value Range Interpretation Code Description Data Nathalie rce(s) Supporting Document(s) SARS coronavirus 2 RNA [facility] This lab was ordered by [facility] and reported by [facility]. ID Date Data Source [id number] 12/28/2019 01:00:00 PM EST [facility] Name Value Range Interpretation Code Description Data Nathalie rce(s) Supporting Document(s) SARS coronavirus 2 RNA [facility] This lab was ordered by [facility] and reported by [facility]. ID Date Data Source [id number] 12/21/2019 11:03:00 AM EST [facility] Name Value Range Interpretation Code Description Data Nathalie rce(s) Supporting Document(s) SARS coronavirus 2 RNA [facility] This lab was ordered by [facility] and reported by [facility]. ID Date Data Source [id number] 11/20/2019 01:24:00 PM EDT [facility] ([facility]) Name Value Range Interpretation Code Description Data Nathalie rce(s) Supporting Document(s) Surgical pathology study Laboratory test result [facility] ([facility]) FINAL DIAGNOSIS A - Duodenum, biopsy: Small intestinal mucosa with preserved villous architecture. B - Gastric biopsy: Gastric mucosa, without significant acute or chronic inflammation. No H. pylori is noted. C - Random colon biopsy: Fragments of benign colonic mucosa, no evidence for microscopic colitis is noted. 11/23/2019 - 1228 CLINICAL DIAGNOSIS Nausea, vomiting, constipation 11/20/20191424 GROSS DIAGNOSIS A - Received in formalin [...] of mucosal fragments. All in one. - 11/20/20191424 Signed Charlotte Yeh MD 11/23/2019 1317 ID Date Data Source [id number] 11/15/2019 10:00:00 AM EDT [facility] Name Value Range Interpretation Code Description Data Nathalie rce(s) Supporting Document(s) SARS coronavirus 2 RNA [facility] This lab was ordered by [facility] and reported by [facility]. ID Date Data Source [id number] 09/09/2019 08:42:00 AM EDT [facility] ([facility]) Name Value Range Interpretation Code Description Data Nathalie rce(s) Supporting Document(s) Laboratory test finding (navigational concept) Laboratory test result [facility] ([facility]) {DIAGNOSIS: F33.9~{MEDICATIONS/DECLARED : ADDERALL, BUPROPION~{PRESCRIPTION INFO:~{PRESCRIPTION PDF Laboratory test result [facility] ([facility]) {DIAGNOSIS: F33.9~{MEDICATIONS/DECLARED : ADDERALL, BUPROPION~{PRESCRIPTION INFO:~{PRESCRIPTION ID Date Data Source [id number] 09/15/2019 06:32:00 AM EDT [facility] Name Value Range Interpretation Code Description Data Nathalie rce(s) Supporting Document(s) Drugs identified in Urine FINAL [facility] TOXASSURE SELECT 13 (MW) Test Result Flag UnitsDrug Present Amphetamine 349 ng/mg creat Amphetamine is available as a schedule II prescription drug. Test Result Flag Units Ref Range Creatinine 138 mg/dL > =20 Declared Medications: Medication list was not provided. For clinical consultation, please call . Report . [facility] ID Date Data Source [id number] 06/25/2019 08:20:00 AM EDT [facility] ([facility]) Name Value Range Interpretation Code Description Data Nathalie rce(s) Supporting Document(s) Antigliadin IgG ([facility]) Laboratory test result [facility] ([facility]) tTG/DGP Screen Laboratory test result [facility] ([facility]) ID Date Data Source [id number] 06/30/2019 02:20:00 PM EDT [facility] Name Value Range Interpretation Code Description Data Nathalie rce(s) Supporting Document(s) Gliadin peptide+tissue transglutaminase IgA+IgG Ab [Presence] in Serum by Immunoassay Negative Negative [facility] Gliadin IgG Ab [Units/volume] in Serum by Immunoassay WILL FOLLOW Health System ID Date Data Source [id number] 05/28/2019 09:45:00 AM EDT [facility] ([facility]) Name Value Range Interpretation Code Description Data Nathalie rce(s) Supporting Document(s) Thyrotropin [Units/volume] in Serum or Plasma 1.540 uIU/ML 0. 358-3.740 Normal (applies to non-numeric results) [facility] ([facility]) ID Date Data Source [id number] 05/28/2019 09:45:00 AM EDT [facility] ([facility]) Name Value Range Interpretation Code Description Data Nathalie rce(s) Supporting Document(s) Glucose, Fasting 82 mg/dL 70-100 Normal (applies to non-numeric results) [facility] ([facility]) Glomerular Filtration Rate Laboratory test result Normal (applies to non- numeric results) [facility] ([facility]) <content>Units are mL/min/1.73 m2</content>
<content></content>
<content>Chronic Kidney Disease Staging per NKF:</content>
<content></content>
<content>Stage I & II GFR >=60 Normal to Mildly Decreased</content>
<content>Stage III GFR 30- 59 Moderately Decreased</content>
<content>Stage IV GFR 15-29 Severely Decreased</content>
<content>Stage V GFR <15 Very Little GFR Left</content>
<content>ESRD GFR <15 on PROFESSOR OF [employer]</content>
<content></content> Creatinine For GFR 0.82 mg/dL 0.55-1.30 Normal (applies to non -numeric results) [facility] ([facility]) Blood Urea Nitrogen 15 mg/dL 7-18 Normal (applies to non-nume sosa results) [facility] ([facility]) Sodium Level 141 meq/L 136-145 Normal (applies to non-numeric res ults) [facility] ([facility]) Potassium Serum 4.3 meq/L 3.5-5.1 Normal (applies to non-numeric results) [facility] ([facility]) Chloride Level 106 meq/L 98-107 Normal (applies to non-numeric r esults) [facility]) Calcium Level 9.4 mg/dL 8.5-10.1 Normal (applies to non-numeric re sults) [facility] ([facility]) Anion Gap 5 meq/L 8-16 Below low normal [facility] ( [facility]) Carbon Dioxide Level 30 meq/L 21-32 Normal (applies to non-num clint results) [facility] ([facility]) Alkaline Phosphatase 69 U/L 45-117 Normal (applies to non-num clint results) [facility] ([facility]) Alt/SGPT 61 U/L 12-78 Normal (applies to non-numeric resul ts) [facility] ([facility]) Ast/Sgot 16 U/L 7-37 Normal (applies to non-numeric resul ts) [facility] ([facility]) Albumin 3.9 GM/DL 3.2-5.2 Normal (applies to non-numeric resul ts) [facility] Bilirubin,Total 0.2 mg/dL 0.2-1.0 Normal (applies to non-numeric results) [facility] ([facility]) Total Protein 7.4 GM/DL 6.4-8.2 Normal (applies to non-numeric re sults) [facility] ([facility]) Albumin/Globulin Ratio 1.11 1.00-1.93 Normal (applies to non-numeric results) [facility]) ID Date Data Source [id number] 05/28/2019 09:45:00 AM EDT [facility] ([facility]) Name Value Range Interpretation Code Description Data Nathalie rce(s) Supporting Document(s) White Blood Count 4.2 10 4.0-10.0 Normal (applies to non-numeri c results) [facility] ([facility]) Hemoglobin 13.3 g/dL 12.0-15.5 Normal (applies to non-numeric resul ts) [facility] ([facility]) Red Blood Count 4.25 10 4.00-5.40 Normal (applies to non-numeric results) [facility] ([facility]) Hematocrit 40.4 % 36.0-47.0 Normal (applies to non-numeric resul ts) [facility] ([facility]) Mean Corpuscular Hemoglobin 31.3 pg 27.0-33.0 Norm al (applies to non-numeric results) [facility] ([facility]) Mean Corpuscular HGB Conc 32.9 g/dL 32.0-36.5 Normal (applies to non-numeric results) [facility] ([facility]) Mean Corpuscular Volume 95.1 fl 80.0-96.0 Normal ( applies to non-numeric results) [facility] ([facility]) Red Cell Distribution Width 12.8 % 11.5-14.5 Norm al (applies to non-numeric results) [facility] ([facility]) Nucleated Red Blood Cell % 0.0 % 0-0 Normal (applies to n on-numeric results) [facility] ([facility]) Platelet Count, Automated 292 10 150-450 Normal (applies to non-numeric results) [facility]) ID Date Data Source [id number] 05/27/2019 03:26:00 PM EDT [facility] ([facility]) Name Value Range Interpretation Code Description Data Nathalie rce(s) Supporting Document(s) Thyrotropin [Units/volume] in Serum or Plasma Laboratory test result [facility]) ID Date Data Source [id number] 05/05/2019 09:37:00 AM EDT [facility] [address] [place] [address] PHONE: [phone] FAX: [phone] Name .................. : JACQUELINE Hernandez Acct Number.................. : [id number] ROOM. ................. : Number ................... : [id number] Stay type ............. : O/P Discharge Date......... ... : 05/05/19 Admit Date ......... : 05/05/19 Admit Phys .................... : LOIS Date of ....... : 1990 Family Phys ................... : [employer] Phone .................. : [phone] Age ................................ : 29 Film# .................. .:[id number] Sex ................................. : F Unsigned transcriptions are preliminary reports and do not represent a medical or legal document US ABD COMPLETE [id number] COMPLETE:05/05/19 08:29 GS [id number] (REASON FOR ABDOMEN: ABDOMINAL PAIN COMPLETE ABDOMINAL ULTRASOUND: INDICATION: Abdominal pain. FINDINGS: There is normal sonographic appearance of the pancreas and liver. The spleen is at the upper limits of normal in size, measuring 11.2 cm. The bilateral kidneys are normal in size, contour and echogenicity. There are no stones or hydronephrosis visualized bilaterally. No gallstones or gallbladder wall thickening. The common bile duct measures 2 mm in diameter. The visualized aorta and IVC are normal in caliber. IMPRESSION: The spleen is at the upper limits of normal in size. No acute sonographic abnormality of the abdomen. ____ Electronically Reviewed and Signed By Shar Tinsley M.D. , 05/05/19 09:37, RIY Transcribe Initials: DZ , Transcribe Date: 05/05/19 08:53, Dictation Date: Copy for: 710 MED REC Page 1 of 1 Name Value Range Interpretation Code Description Data Nathalie rce(s) Supporting Document(s) ID Date Data Source [id number] 02/27/2019 08:12:00 AM EST [facility] ([facility]) Name Value Range Interpretation Code Description Data Nathalie rce(s) Supporting Document(s) US Abd Complete <pending> [facility]) Procedure Vital Signs ID Date Data Source [id number] Name Value Range Interpretation Code Description Data Source(s) Body surface area Derived from formula 1.87 m2 1.87 m2 [facility] ([facility]) Body mass index (BMI) [Ratio] 26.0 kg/m2 26.0 k g/m2 [facility] ([facility]) Body height 67 [in_i] 67 [in_i] [facility] ([facility]) 5'7" Body weight 75.354 kg 75.354 kg [facility] ([facility]) Body weight 166.12 [lb_av] 166.12 [lb_av] [facility] T ([facility]) Body temperature 96.8 [degF] 96.8 [degF] [facility] ([facility]) Heart rate 70 /min 70 /min [facility] ([facility]) Diastolic blood pressure 72 mm[Hg] 72 mm[Hg] [facility] ([facility]) Systolic blood pressure 118 mm[Hg] 118 mm[Hg] M [facility] ([facility]) Body surface area Derived from formula 1.85 m2 1.85 m2 [facility] ([facility], ) Body weight 73.256 kg 73.256 kg [facility] ([facility] ) [place] body weight 135 [lb_av] 135 [lb_av] [facility] ([facility]) Body mass index (BMI) [Ratio] 25.3 kg/m2 25.3 k g/m2 [facility] ([facility]) Body weight 161.50 [lb_av] 161.50 [lb_av] [facility] ([facility]) Body height 67 [in_i] 67 [in_i] [facility] ([facility]) 5'7" Diastolic blood pressure 77 mm[Hg] 77 mm[Hg] [facility] ([facility]) Systolic blood pressure 115 mm[Hg] 115 mm[Hg] [facility] ([facility]) Body surface area Derived from formula 1.86 m2 1.86 m2 [facility] ([facility]) Body mass index (BMI) [Ratio] 25.8 kg/m2 25.8 k g/m2 [facility] ([facility]) Body height 67 [in_i] 67 [in_i] [facility] ([facility]) 5'7" Body weight 74.844 kg 74.844 kg [facility] ([facility]) Body weight 165.00 [lb_av] 165.00 [lb_av] [facility] ([facility]) Oxygen saturation in Arterial blood by Pulse oximetry 98 % 98 % [facility]) Respiratory rate 16 /min 16 /min [facility] ( [facility]) Body temperature 98.4 [degF] 98.4 [degF] [facility] ([facility]) Heart rate 107 /min 107 /min [facility] ([facility]) Diastolic blood pressure 68 mm[Hg] 68 mm[Hg] [facility] ([facility]) Systolic blood pressure 102 mm[Hg] 102 mm[Hg] [facility] Body surface area Derived from formula 1.87 m2 1.87 m2 [facility] ([facility]) Body weight 75.751 kg 75.751 kg [facility] ([facility]) [place] body weight 135 [lb_av] 135 [lb_av] [facility] T ([facility], ) Body mass index (BMI) [Ratio] 26.2 kg/m2 26.2 k g/m2 [facility] ([facility]) Body weight 167.00 [lb_av] 167.00 [lb_av] [facility] ([facility]) Body height 67 [in_i] 67 [in_i] [facility] ([facility]) 5'7" Diastolic blood pressure 77 mm[Hg] 77 mm[Hg] [facility] ([facility]) Systolic blood pressure 114 mm[Hg] 114 mm[Hg] [facility] ([facility]) Body surface area Derived from formula 1.89 m2 1.89 m2 [facility] ([facility]) Body mass index (BMI) [Ratio] 26.8 kg/m2 26.8 k g/m2 [facility] ([facility]) Body height 67 [in_i] 67 [in_i] [facility] ([facility]) 5'7" Body weight 77.679 kg 77.679 kg [facility] ([facility]) Body weight 171.25 [lb_av] 171.25 [lb_av] [facility] ([facility]) Oxygen saturation in Arterial blood by Pulse oximetry 100 % 100 % [facility] ([facility]) Respiratory rate 16 /min 16 /min [facility] ( [facility]) Body temperature 98.2 [degF] 98.2 [degF] [facility] ([facility]) Oral Heart rate 97 /min 97 /min [facility] ([facility]) Diastolic blood pressure--sitting 74 mm[Hg] 74 mm[Hg] [facility] ([facility]) Systolic blood pressure--sitting 119 mm[Hg] 119 mm[Hg] [facility] ([facility]) Body surface area 1.89 m2 1.89 m2 [facility] ([facility]) Body weight 76.658 kg 76.658 kg [facility] ([facility]) [place] body weight 135 [lb_av] 135 [lb_av] [facility] ([facility]) Body mass index (BMI) [Ratio] 26.5 kg/m2 26.5 k g/m2 [facility]) Body weight 169.00 [lb_av] 169.00 [lb_av] [facility] ([facility]) Body height 67 [in_i] 67 [in_i] [facility] ([facility]) 5'7" Diastolic blood pressure 77 mm[Hg] 77 mm[Hg] [facility] ([facility]) Systolic blood pressure 129 mm[Hg] 129 mm[Hg] [facility] Body surface area Derived from formula 1.93 m2 1.93 m2 [facility] ([facility]) Body mass index (BMI) [Ratio] 27.9 kg/m2 27.9 k g/m2 [facility] ([facility]) Body height 67 [in_i] 67 [in_i] [facility] ([facility]) 5'7" Body weight 80.797 kg 80.797 kg [facility] ([facility]) Body weight 178.12 [lb_av] 178.12 [lb_av] [facility] ([facility]) Oxygen saturation in Arterial blood by Pulse oximetry 98 % 98 % [facility] ([facility]) Respiratory rate 16 /min 16 /min [facility] ( [facility]) Body temperature 98.2 [degF] 98.2 [degF] [facility] ([facility]) Heart rate 85 /min 85 /min [facility] ([facility]) Diastolic blood pressure 62 mm[Hg] 62 mm[Hg] [facility] ([facility]) Systolic blood pressure 110 mm[Hg] 110 mm[Hg] [facility] ([facility]) Body surface area 1.93 m2 1.93 m2 [facility] ([facility]) Body surface area 1.97 m2 1.97 m2 [facility] ([facility]) Body mass index (BMI) [Ratio] 29.4 kg/m2 29.4 k g/m2 [facility] ([facility]) Body height 67 [in_i] 67 [in_i] [facility] ([facility]) 5'7" Body weight 85.050 kg 85.050 kg [facility] ([facility]) Body weight 187.50 [lb_av] 187.50 [lb_av] [facility] ([facility]) Oxygen saturation in Arterial blood by Pulse oximetry 98 % 98 % [facility] ([facility]) Respiratory rate 16 /min 16 /min [facility] ( [facility]) Body temperature 97.5 [degF] 97.5 [degF] [facility] ([facility]) Heart rate 110 /min 110 /min [facility] ([facility]) Diastolic blood pressure 60 mm[Hg] 60 mm[Hg] [facility] ([facility]) Systolic blood pressure 110 mm[Hg] 110 mm[Hg] [facility] ([facility])
[2020-03-31] MEDS ORDERED: BUPIVACAINE HCL 0.25% 30ML VIAL As Ordered ONE (10:25)
[2020-03-31] MEDS ORDERED: LIDOCAINE 1% SDV 30ML VIAL As Ordered ONE (10:25)
[2020-03-31] MEDS ORDERED: ONDANSETRON 4MG/2ML VIAL As Ordered ONE ×2 (11:05→12:57)
[2020-03-31] MEDS ORDERED: LIDOCAINE 2% 100MG/5ML SDV (FOR ANES.) As Ordered ONE (11:05)
[2020-03-31] MEDS ORDERED: propofoL 200 MG/20 ML VIAL As Ordered ONE (11:05)
[2020-03-31] MEDS ORDERED: KETOROLAC 60MG 2ML VIAL As Ordered ONE (11:05)
[2020-03-31] MEDS ORDERED: dexameTHASONE 4 MG/ML 1ML VIAL (J1100 PER 1MG) As Ordered ONE (11:05)
[2020-03-31] MEDS ORDERED: fentaNYL 250 MCG/5 ML INJECTION (J3010) As Ordered ONE (11:05)
[2020-03-31] MEDS ORDERED: ROCURONIUM BROMIDE 50 MG/5 ML VIAL As Ordered ONE ×2 (11:05→11:32)
[2020-03-31] MEDS ORDERED: MIDAZOLAM INJ 2MG/2ML VIAL (J2250 PER 1MG) As Ordered ONE (11:05)
[2020-03-31] MEDS ORDERED: SUGAMMADEX SODIUM 500 MG/5 ML VIAL (BRIDION) As Ordered ONE (11:05)
[2020-03-31] MEDS ORDERED: ACETAMINOPHEN 1000MG 100ML IV BTL (OFIRMEV) (J0131 PER 10MG) As Ordered ONE (11:16)
[2020-03-31] MEDS ORDERED: LR 1,000 ML IV SCH (13:00)
[2020-03-31] MEDS ORDERED: ONDANSETRON 4MG/2ML VIAL IV PRN ×2 (13:00→13:15)
[2020-03-31] MEDS ORDERED: HYDROMORPHONE HCL 0.5 MG/ 0.5 ML SYRINGE (J1170 PER 1) IV PRN (13:00)
[2020-03-31] MEDS ORDERED: KETOROLAC 30 MG/ML 1ML VIAL IV PRN (13:00)
[2020-03-31] MEDS ORDERED: oxyCODONE 5MG TAB PO PRN (13:00)
[2020-03-31] MEDS ORDERED: fentaNYL 100 MCG/2 ML INJECTION (J3010) As Ordered ONE (13:11)
[2020-03-31] MEDS: fentaNYL 100 MCG/2 ML INJECTION (J3010) IV PRN ×4 (13:13→13:32)
[2020-03-31] MEDS ORDERED: NORCO, ANEXSIA 5/325MG TABLET (HYDROcodone/ACETAMINOPHEN) PO PRN (13:15)
[2020-03-31] MEDS ORDERED: METOCLOPRAMIDE INJ 10MG/2ML VIAL (J2765 PER 1) As Ordered ONE (14:36)
[2020-03-31] MEDS ORDERED: METOCLOPRAMIDE INJ 10MG/2ML VIAL (J2765 PER 1) IV ONE (14:45)
--- NOTE | 2020-03-31 14:58 | ROOPDOC ---
[facility] Report Of Operation Report of Operation DATE OF PROCEDURE: 03/31/20 PREPROCEDURE DIAGNOSES: biliary colic, biliary dyskinesia. POSTPROCEDURE DIAGNOSES: biliary colic, cholelithiasis. PROCEDURE: Robotic assisted Laparoscopic Cholecystectomy with ICG use for biliary identification bilateral Transversus abdominis plane block (1% lidocaine, 1/4% Maracaine x 40 mLs) SURGEON: Tab Guido MD CARE ATTENDANT: GILBERT Palma Ms assisted me with placement of ports, management of the instruments and robotic arms on the field while I was at the Surgeon's console, extraction of the gallbladder and closure of port sites. ANESTHESIA: General Anesthesia. ESTIMATED BLOOD LOSS: Approximately 10 mL. COMPLICATIONS: none. REMARKS: 29 F with intermittent right upper quadrant discomfort which she describes sounds to be biliary colic type pain and workup did not show any stones inside her gallbladder on ultrasound but had an abnormal ejection fraction on HIDA scan with EF consistent with biliary dyskinesia. She is brought today for laparoscopic cholecystectomy.. PROCEDURE NOTE: Moderately distended, elongated gallbladder, thin-walled, prominent Granados's pouch. Small stones can be palpated inside of the gall bladder on the extraction. DESCRIPTION OF PROCEDURE: Patient was given a dose Unasyn 3 g IV preoperatively for prophylaxis, 5 mg of ICG was given IV in the preop area. She was brought to the operating room, laid supine on the table, compression boots placed for DVT prophylaxis. General endotracheal anesthesia started. His abdomen then prepped and draped in usual sterile fashion. Surgical timeout was performed prior to confirm right procedure, right patient identification and other necessary information prior to starting surgery. Entry into the abdomen done through an incision below and slightly to the left of the umbilical cleft. A Veress needle was inserted with a controlled fashion. CO2 insufflation started to pressure 15 mmHg. Using the same incision an 8 mm robotic trochar was placed under direct vision laparoscope. The area underneath the insertion site was inspected and no injury found. She was then placed on a 10 reverse Trendelenburg, tilted slightly towards the left side. Under direct vision I placed two more 8 mm trochars along a row level to the camera port site about 10 cms to the camera's left and right side. A transversus abdominis plane block was then performed bilaterally using the lidocaine/marcaine mixture under laparoscopic guidance. The [employer] robot tower was then maneuvered in place and the trochars docked to the robot. After positioning the instruments inside of the abdomen, and scrubbed in to control of the camera and robotic instruments at the surgeon's console while my personal injury legal assistant remains on the field. Operative findings: She has a smooth appearing normal sized liver without any noticeable lesions on the surface. The gallbladder is noted to be moderately distended but soft and relatively thin wall without any signs of inflammation. This takes up quite an elongated coursing up very prominent infundibulum or Granados's pouch. I was able to opacify the course of the cystic duct and the common bile duct with the firefly imaging of the robotic camera. The fundus of the gallbladder was elevated to the underside of the subcostal wall area and tethered to the abdominal wall with 20V LOC. I then proceeded with dissection of the hepatocystic triangle with the aid of the firefly and ICG to identify the course of the cystic duct. The peritoneum overlying the area is opened up and dissected free both anteriorly and posteriorly to help with retraction of the gallbladder. The hepatocystic triangle was approached and dissected using hook cautery and firely visualization of the cystic duct. There was good illumination of the course of the cystic duct. The cystic duct was identified coming off from the neck of the gallbladder. This was circumferentially dissected. The cystic artery was identified in its usual position medially behind a hepatocystic lymph node of Calot. This was similarly circumferentially dissected off surrounding adipose tissue. We continued posterior dissection proximally at the neck of gallbladder to dissect the posterior wall of the gallbladder off the liver plate until a critical view of safety was achieved whereby only the previously identified duct and artery coursing through the neck the gallbladder(photodocumentation done.) At this point the the cystic artery was most accessible and this was clipped 2 times and divided in between the hemlock clips. After again checking her anatomy and verifying with firely the course of thecystic duct and common bile duct, this was also clipped and divided with 2 clips remaining at the cystic duct stump. The rest of the gallbladder was then dissected free of the gallbladder bed using hook cautery. The gallbladder was then placed in an Endo Catch bag and retrieved outside through the right port site without further enlargement of the port site. The clips and liver bed was inspected for bleeding and bile leakage and none found. The abdomen was deflated, The trochars undocked, the robot removed from the field. Rest of the skin incisions closed with 4-0 Monocryl in subcuticular fashion. Dermabond placed to cover the incisions.. Patient was awakened, extubated and brought to recovery room stable. TAB GUIDO MD Mar 31, 2020 14:58
[2020-03-31 17:45] VITALS: BP 134/73
== END 2020-03-31 17:45 | disposition home or self-care (01) ==
LOC: M SDC 08:47
PROVIDERS: ATTEND Surgery
DX: K80.10 Calculus of gallbladder with chronic cholecystitis without obstruction (principal); K58.8 Other irritable bowel syndrome; F90.9 Attention-deficit hyperactivity disorder, unspecified type; F41.9 Anxiety disorder, unspecified; F32.9 Major depressive disorder, single episode, unspecified; Z79.899 Other long term (current) drug therapy
CPT/HCPCS: 47563; 64488; 81025; 88304; J0131; J1100; J1885; J2250; J2405; J2765; J3010

== ENCOUNTER → 2020-05-25 | Outpatient (REF) | payer OTHER ==
[~2020-05-25] MED LIST changes: -AMPICILLIN SOD/SULBACTAM SOD 3 GM in D5W MINI-BAG PLUS 100 ML IV ONE; -CelecoXIB (CeleBREX) 100 MG CAP PO ONE; -LIDOCAINE 1% MDV 20ML VIAL SQ PRN; -LR 1,000 ML IV ONE
== END ==
LOC: M LAB REF 12:28
PROVIDERS: ATTEND Physician Assistant Medical
DX: Z32.00 Encounter for pregnancy test, result unknown (principal)

== ENCOUNTER 2020-05-27 10:45 | Emergency (ER) | payer OTHER ==
[~2020-05-27] VITALS: Ht 170.2 cm; Wt 77.6 kg
[2020-05-27 11:58] LABS: BASO # 0.1 10^3/uL (0.0-0.2); BASO % 0.8 % (0.0-1.0); EOS # 0.1 10^3/uL (0.0-0.5); EOS % 1.9 % (0.0-3.0); HEMATOCRIT 44.2 % (36.0-47.0); HEMOGLOBIN 14.6 g/dl (12.0-15.5); LYMPH # 1.3 10^3/uL (1.5-5.0); LYMPH % 20.7 % (24.0-44.0); MEAN CORPUSCULAR HEMOGLOBIN 31.7 pg (27.0-33.0); MEAN CORPUSCULAR VOLUME 95.9 fl (80.0-96.0); MONO # 0.3 10^3/uL (0.0-0.8); NEUTROPHILS # 4.6 10^3/uL (1.5-8.5); NEUTROPHILS % 71.3 % (36.0-66.0); PLATELET COUNT, AUTOMATED 258 10^3/uL (150-450); RED BLOOD COUNT 4.61 10^6/uL (4.00-5.40); WHITE BLOOD COUNT 6.4 10^3/uL (4.0-10.0)
[2020-05-27 12:24] LABS: BLOOD UREA NITROGEN 17 MG/DL (7-18); CALCIUM LEVEL 9.6 MG/DL (8.5-10.1); CARBON DIOXIDE LEVEL 28 MEQ/L (21-32); CHLORIDE LEVEL 107 MEQ/L (98-107); CREATININE FOR GFR 0.92 MG/DL (0.55-1.30); GLOMERULAR FILTRATION RATE > 60.0 (>60); GLUCOSE, FASTING 87 MG/DL (70-100); HCG, SERUM QUANTITATIVE 2 MIU/ML; POTASSIUM SERUM 4.1 MEQ/L (3.5-5.1); SODIUM LEVEL 139 MEQ/L (136-145)
--- NOTE | 2020-05-27 13:45 | REP ---
INDICATION: R pelvic pain, +hcg blood Saturday, HCG 2 today. COMPARISON: None. TECHNIQUE: Transabdominal scanning performed. FINDINGS: Uterine dimensions are 8.6 x 3.3 x 5.9 cm. Endometrial echo is 5 mm in AP dimension and centrally placed. The bladder measures 6.9 x 5.6 x 9.9cm. The right ovary has dimensions of 2.9 x 1.9 x 2.1 cm. It's Doppler flow is normal with a resistive index of 0.70. The left ovary dimensions are 2.1 x 1.3 x 1.9 cm. It's Doppler flow was normal with resistive index of 0.74. There is no adnexal mass identified. No free fluid is seen in the cul-de-sac. IMPRESSION: Negative pelvic ultrasound. <Electronically signed by Jamil Reno > 05/27/20 [id number]
[2020-05-27 14:31] VITALS: BP 127/74
== END 2020-05-27 14:35 | disposition home or self-care (01) ==
LOC: M ED 10:45
DX: N93.9 Abnormal uterine and vaginal bleeding, unspecified (principal); Z87.42 Personal history of other diseases of the female genital tract; F41.9 Anxiety disorder, unspecified; F32.9 Major depressive disorder, single episode, unspecified; F90.9 Attention-deficit hyperactivity disorder, unspecified type; R87.612 Low grade squamous intraepithelial lesion on cytologic smear of cervix (LGSIL); Z79.899 Other long term (current) drug therapy

== ENCOUNTER → 2020-05-30 | Outpatient (REF) | payer OTHER | LOC: M LAB REF 12:39 | PROVIDERS: ATTEND Physician Assistant Medical | DX: N93.9 Abnormal uterine and vaginal bleeding, unspecified (principal) ==

== ENCOUNTER → 2020-09-02 | Outpatient (REF) | payer OTHER ==
[2020-09-02 13:23] LABS: BASO # 0.1 10^3/uL (0.0-0.2); EOS # 0.1 10^3/uL (0.0-0.5); EOS % 2.2 % (0.0-3.0); HEMATOCRIT 42.5 % (36.0-47.0); LYMPH # 1.7 10^3/uL (1.5-5.0); LYMPH % 33.6 % (24.0-44.0); MEAN CORPUSCULAR HEMOGLOBIN 31.5 pg (27.0-33.0); MEAN CORPUSCULAR HGB CONC 32.9 g/dl (32.0-36.5); MEAN CORPUSCULAR VOLUME 95.5 fl (80.0-96.0); MONO # 0.3 10^3/uL (0.0-0.8); MONO % 6.7 % (2.0-8.0); NEUTROPHILS # 2.8 10^3/uL (1.5-8.5); NEUTROPHILS % 56.1 % (36.0-66.0); PLATELET COUNT, AUTOMATED 276 10^3/uL (150-450); RED BLOOD COUNT 4.45 10^6/uL (4.00-5.40); WHITE BLOOD COUNT 4.9 10^3/uL (4.0-10.0)
[2020-09-02 14:04] LABS: ALT/SGPT 24 U/L (12-78); BILIRUBIN,TOTAL 0.3 MG/DL (0.2-1.0); BLOOD UREA NITROGEN 14 MG/DL (7-18); CALCIUM LEVEL 9.4 MG/DL (8.5-10.1); CARBON DIOXIDE LEVEL 28 MEQ/L (21-32); CHLORIDE LEVEL 107 MEQ/L (98-107); CREATININE FOR GFR 1.06 MG/DL (0.55-1.30); FREE T4 1.04 NG/DL (0.76-1.46); GLOMERULAR FILTRATION RATE > 60.0 (>60); GLUCOSE, FASTING 93 MG/DL (70-100); IRON (FE) 96 UG/DL (50-170); PERCENT SATURATION 22.7 % (13.2-45.0); SODIUM LEVEL 141 MEQ/L (136-145); TOTAL IRON BINDING CAPACITY 422 UG/DL (250-450); TOTAL PROTEIN 7.1 GM/DL (6.4-8.2)
[2020-09-02 14:06] LABS: TOTAL T3 167.9 NG/DL (60.0-181.0); VITAMIN B12 LEVEL 1145 PG/ML (247-911)
== END ==
LOC: M LAB REF 12:48
PROVIDERS: ATTEND Nurse Practitioner Family
DX: R53.83 Other fatigue (principal)

== ENCOUNTER → 2021-01-26 | Outpatient (REF) | LOC: M LABSMTC 11:31 | PROVIDERS: ATTEND Pediatrics | DX: Z11.52 Encounter for screening for COVID-19 (principal) ==

== ENCOUNTER → 2021-09-22 | Outpatient (REF) ==
[~2021-09-22] MED LIST changes: +BUPR-71; -BUPR150T5
== END ==
LOC: M EMP 10:39
PROVIDERS: ATTEND Family Medicine
DX: Z11.52 Encounter for screening for COVID-19 (principal)

== ENCOUNTER → 2022-06-05 | Outpatient (REF) | LOC: M EMP 08:21 | PROVIDERS: ATTEND Family Medicine | DX: Z11.52 Encounter for screening for COVID-19 (principal) ==

== ENCOUNTER → 2023-11-19 | Outpatient (CLI) | payer OTHER ==
[~2023-11-19] MED LIST changes: +DICY-61 PO; -DICY10CA13 PO; +ISOVUE-300 61% 100ML VIAL As Ordered ONE; +LIDOCAINE 1% MDV 20ML VIAL As Ordered ONE; +ONDA-282 PO; -ONDA4TAB6 PO; +PROHANCE 279.3MG/ML 5ML VIAL As Ordered ONE
== END ==
LOC: M RAD 09:02
PROVIDERS: ATTEND Physician Assistant
DX: M25.512 Pain in left shoulder (principal); S43.402A Unspecified sprain of left shoulder joint, initial encounter; X58.XXXA Exposure to other specified factors, initial encounter; Y92.9 Unspecified place or not applicable
CPT/HCPCS: 23350; 73223; 77002; A9576; Q9967

== ENCOUNTER 2024-11-21 11:07 | Emergency (ER) | payer OTHER ==
[~2024-11-21] VITALS: Ht 170.2 cm; Wt 85.4 kg
[~2024-11-21 11:07] MED LIST changes: -IBUP-1022 PO; +IBUP600T42 PO; -ISOVUE-300 61% 100ML VIAL As Ordered ONE; -LIDOCAINE 1% MDV 20ML VIAL As Ordered ONE; +METH36TA13; -METH36TA5; -PROHANCE 279.3MG/ML 5ML VIAL As Ordered ONE; -VITA100T14 PO; +VITA100T69 PO
[2024-11-21] MEDS ORDERED: PREDOPD (11:24)
[2024-11-21] MEDS ORDERED: RAME8TAB2 (11:24)
[2024-11-21] MEDS ORDERED: SERT50TA29 (11:24)
[2024-11-21] MEDS ORDERED: LORY1TAB2 (11:24)
[2024-11-21] MEDS ORDERED: SODI3.5O5 (11:24)
[2024-11-21] MEDS ORDERED: REFR0.1D (11:24)
[2024-11-21 19:01] VITALS: BP 124/70
[2024-11-21 19:03] VITALS: TEMP 96.8; O2SAT 99
== END 2024-11-21 19:06 | disposition short-term general hospital (02) ==
LOC: M ED 11:07
DX: H53.8 Other visual disturbances (principal); Z79.1 Long term (current) use of non-steroidal anti-inflammatories (NSAID); Z79.52 Long term (current) use of systemic steroids; Z79.899 Other long term (current) drug therapy

== ENCOUNTER → 2024-12-22 | Outpatient (RCR) ==
[~2024-12-22] MED LIST changes: +LORY1TAB2; +PREDOPD; +RAME8TAB2; +REFR0.1D; +SERT50TA29; +SODI3.5O5
== END ==
LOC: M EMPSKH 12-17 15:12
PROVIDERS: ATTEND Family Medicine
DX: Z20.828 Contact with and (suspected) exposure to other viral communicable diseases (principal)